=== PATIENT | female | born 1975 | race Caucasian/White ===

== ENCOUNTER 2019-05-12 14:06 | Emergency (ER) | payer OTHER ==
[2019-05-12] MEDS ORDERED: NA CHLORIDE 0.9% 1,000 ML ONE (15:26)
--- NOTE | 2019-05-12 17:50 | ER ---
Nurse's Notes [facility] Name: Kate Moreno Age: 43 yrs Sex: Female : 1975 Arrival Date: 05/12/2019 Time: 14:11 Bed DIS2 Private MD: Diagnosis: Diarrhea, unspecified Presentation: 05/12 14:53 Presenting complaint: Patient states: diarrhea yesterday, vomited yesterday no vomiting iw today , also has back pain and body aches, chills. 14:57 Transition of care: patient was not received from another setting of care. Onset of iw symptoms was May 12, 2019. Risk Assessment: Do you want to hurt yourself or someone else? Patient reports no desire to harm self or others. Initial Sepsis Screen: Does the patient meet any 2 criteria? No. Patient's initial sepsis screen is negative. Does the patient have a suspected source of infection? No. Patient's initial sepsis screen is negative. Care prior to arrival: None. 14:57 Method Of Arrival: Ambulatory iw 14:57 Acuity: BHUMI 4 iw Triage Assessment: 16:30 General: Appears in no apparent distress. Behavior is calm, cooperative. Pain: iw Complains of pain in back. GI: Reports diarrhea, nausea. 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 - Social history:: Smoking status: Patient/guardian denies using tobacco. - Ebola Screening: : Patient negative for fever greater than or equal to 101.5 degrees Fahrenheit, and additional compatible Ebola Virus Disease symptoms Patient denies exposure to infectious person Patient denies travel to an Ebola-affected area in the 21 days before illness onset No symptoms or risks identified at this time. Screenin:30 Abuse screen: Denies threats or abuse. Denies injuries from another. Nutritional iw screening: No deficits noted. Tuberculosis screening: No symptoms or risk factors identified. Assessment: 17:30 Reassessment: Patient appears in no apparent distress at this time. Patient and/or iw family updated on plan of care and expected duration. Pain level reassessed. Patient is alert, oriented x 3, equal unlabored respirations, skin warm/dry/pink. Vital Signs: 14:56 BP 130 / 85; Pulse 85; Resp 16; Temp 97.2; Pulse Ox 98% on R/A; Weight 74.39 kg; Height iw 5 ft. 1 in. (154.94 cm); 14:56 Body Mass Index 30.99 (74.39 kg, 154.94 cm) iw ED Course: 14:11 Patient arrived in ED. rg4 14:27 Ta Rust F[facility]-C [facility]. la1 14:27 Ra Dsouza MD is Attending Physician. la1 14:33 Cecy Feldman, RN is Primary Nurse. iw 14:57 Triage completed. iw 14:57 Arm band placed on. iw 17:30 No provider procedures requiring assistance completed. Patient did not have IV access iw during this emergency room visit. Administered Medications: No medications were administered Outcome: 17:49 Discharge ordered by MD. la1 18:20 Discharged to home iw 18:20 Condition: good 18:20 Discharge instructions given to patient, Instructed on discharge instructions, follow up and referral plans. Demonstrated understanding of instructions. 18:22 Patient left the ED. iw Signatures: Cecy Feldman, RN RN iw Ta Rust FNP-C FNP-Merna Aly rg4
--- NOTE | 2019-05-12 17:51 | EDPHYS ---
Physician Documentation [facility] Name: Kate Moreno Age: 43 yrs Sex: Female : 1975 Arrival Date: 05/12/2019 Time: 14:11 Bed DIS2 Private MD: ED Physician Ra Dsouza HPI: 05/12 15:18 This 43 yrs old Female presents to ER via Ambulatory with complaints of la1 Diarrhea, chills, side pain, back pain. 15:18 The patient presents to the emergency department with nausea, vomiting, 1 times today, la1 diarrhea, 5 times today. 15:18 Onset: The symptoms/episode began/occurred yesterday. Possible causes: sick contacts, la1 by family. The symptoms are aggravated by nothing. The symptoms are alleviated by nothing. Associated signs and symptoms: Pertinent positives: chills. Associated signs and symptoms: Pertinent negatives: belching, constipation, dysuria, GI bleeding, hematuria, vaginal discharge. Severity of symptoms: At their worst the symptoms were mild. The patient has not experienced similar symptoms in the past. family members ill with similar symptoms. . 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 - Social history:: Smoking status: Patient/guardian denies using tobacco. - Ebola Screening: : Patient negative for fever greater than or equal to 101.5 degrees Fahrenheit, and additional compatible Ebola Virus Disease symptoms Patient denies exposure to infectious person Patient denies travel to an Ebola-affected area in the 21 days before illness onset No symptoms or risks identified at this time. ROS: 15:19 Constitutional: Negative for fever, chills, and weight loss, Eyes: Negative for injury, la1 pain, redness, and discharge, ENT: Negative for injury, pain, and discharge, Neck: Negative for injury, pain, and swelling, Cardiovascular: Negative for chest pain, palpitations, and edema, Respiratory: Negative for shortness of breath, cough, wheezing, and pleuritic chest pain. 15:19 MS/Extremity: Negative for injury and deformity, Neuro: Negative for headache, weakness, numbness, tingling, and seizure. 15:19 Abdomen/GI: Positive for nausea, vomiting, and diarrhea, Negative for hematemesis, black/tarry stool, rectal pain, rectal bleeding, bowel incontinence. Exam: 17:48 Constitutional: This is a well developed, well nourished patient who is awake, alert, la1 and in no acute distress. Head/Face: Normocephalic, atraumatic. Eyes: Pupils equal round and reactive to light, extra-ocular motions intact. Periorbital areas with no swelling, redness, or edema. Neck: No Meningismus. Chest/axilla: Normal chest wall appearance and motion. Nontender with no deformity. No lesions are appreciated. Cardiovascular: Regular rate and rhythm with a normal S1 and S2. No gallops, murmurs, or rubs. Normal PMI, no JVD. No pulse deficits. Respiratory: Lungs have equal breath sounds bilaterally, clear to auscultation . No rales, rhonchi or wheezes noted. No increased work of breathing, no retractions or nasal flaring. Abdomen/GI: Soft, non-tender, with normal bowel sounds. No distension or tympany. No guarding or rebound. No evidence of tenderness throughout. Skin: Warm, dry with normal turgor. Normal color with no rashes, no lesions, and no evidence of cellulitis. Neuro: Awake and alert, GCS 15, oriented to person, place, time, and situation. Normal gait. Vital Signs: 14:56 BP 130 / 85; Pulse 85; Resp 16; Temp 97.2; Pulse Ox 98% on R/A; Weight 74.39 kg; Height iw 5 ft. 1 in. (154.94 cm); 14:56 Body Mass Index 30.99 (74.39 kg, 154.94 cm) iw MDM: 14:27 Patient medically screened. la1 17:46 Data reviewed: vital signs, nurses notes, lab test result(s), I have discussed the la1 patient's presentation/case with the attending Emergency Department Physician; and as a result, I will discharge patient. Data interpreted: Pulse oximetry: on room air is 99 %. Interpretation: normal. Counseling: I had a detailed discussion with the patient and/or guardian regarding: the historical points, exam findings, and any diagnostic results supporting the discharge/admit diagnosis, the need for outpatient follow up, a family practitioner, to return to the emergency department if symptoms worsen or persist or if there are any questions or concerns that arise at home. ED course: Family all with diarrhea and fevers, some vomiting, one family member had bloody diarrhea, due to local shigella presence I will cover with zithromax for a possible shigella case. . 17:49 ED course: pt now tolerating PO as well. la1 05/12 15:16 Order name: Flu la1 05/12 16:28 Order name: PO challenge; Complete Time: 16:37 la1 Administered Medications: No medications were administered Disposition: 19:09 Co-signature as Attending Physician, Ra Dsouza MD. rn Disposition: 05/12/19 17:49 Discharged to Home. Impression: Diarrhea, unspecified. - Condition is Stable. - Discharge Instructions: Food Choices to Help Relieve Diarrhea, Adult, Diarrhea, Adult. - Prescriptions for Zithromax 500 mg Oral Tablet - take 1 tablet by ORAL route once daily for 3 days; 3 tablet. - Medication Reconciliation Form, Thank You Letter, Antibiotic Education form. - Work release form (05/12/19 19:31). rr5 - Follow up: Private Physician; When: 2 - 3 days; Reason: Recheck today's complaints, Re-evaluation by your physician. - Problem is new. - Symptoms have improved. Signatures: Dispatcher [employer] EDMS Cecy Feldman RN RN iw Nieto, Roman, MD MD rn Attema, Lee, CLAMP JIG ASSEMBLER-C CLAMP JIG ASSEMBLER-[facility] Edwar Mcwilliams RN [email or web address] Corrections: (The following items were deleted from the chart) 18:22 17:49 05/12/2019 17:49 Discharged to Home. Impression: Diarrhea, unspecified. Condition iw is Stable. Forms are Medication Reconciliation Form, Thank You Letter, Antibiotic Education, Prescription Opioid Use. Follow up: Private Physician; When: 2 - 3 days; Reason: Recheck today's complaints, Re-evaluation by your physician. Problem is new. Symptoms have improved. la1
[2019-05-12 20:03] VITALS: BP 130/85; TEMP 97.2; O2SAT 98
== END 2019-05-12 18:22 | disposition home or self-care (01) ==
LOC: ER 14:06
DX: R19.7 Diarrhea, unspecified (principal); Z88.5 Allergy status to narcotic agent
CPT/HCPCS: 87804 ×2; 99281; J7030

== ENCOUNTER 2022-04-19 16:38 | Emergency (ER) | payer BC ==
--- OUTSIDE RECORDS SUMMARY | 2022-04-19 16:43 | XMS REPORT | Continuity of Care Document ---
:1975 Author Organization [facility] t Address [address] [place] [address] Care Team Providers Name Role Phone Bui_Q Attending Clinician Unavailable Bui_Q_WAGDNU Attending Clinician Unavailable Nghia Lambert Attending Clinician Unavailable [email or web address] Attending Clinician Unavailable VISIT, NURSE HARLEY VALVERDE Attending Clinician Unavailable Helen Huff Attending Clinician ROGERIO MACK M.D. Attending Clinician Unavailable Callie Humphrey Attending Clinician Drew Reid Attending Clinician JERI FLYNN NP Attending Clinician Unavailable Olya Walter Attending Clinician VISIT, NURSE VICTORINA BLACKMAN Attending Clinician Unavailable Bui_Q Admitting Clinician Unavailable Bui_Q_WAGDNU Admitting Clinician Unavailable Lambert, Nghia D Admitting Clinician Unavailable [email or web address] Admitting Clinician Unavailable Payers Payer Name Policy Type Policy Number Effective Date Expiration Date Leidy wyman [place] [id number] 2021 [place] (PPO) 00:00:00 [facility] [id number] 2014 2021 [facility] 00:00:00 00:00:00 [facility] (PPO) [id number] 2018 00:00:00 Problems Condition Condition Condition Status Onset Resolution Last Treating Co mments Source Name Details Category Date Date Treatment Clinician Date Hypertensi Hypertensi Problem Active V illage ve ve 1-29 Family disorder Disorder 00:00: Practi c 00 e Dyslipidem Dyslipidem Problem Active 2018-05 V illage ia ia 0-11 Family 00:00: Practic 00 e Migraine Migraine Problem Active Guerrier ge 8-31 Family 00:00: Practic 00 e Seasonal Seasonal Problem Active Guerrier ge allergy Allergy 719 Family 00:00: Practic 00 e Menopausal Menopausal Problem Active V illage flushing Flushing 719 Family 00:00: Practic 00 e Motion Motion Problem Active [facility] sickness Sickness 719 Family 00:00: Practic 00 e 1ST: 1ST: DR Diagnosis Active 2018-07-13 Memoria HUMPHREY: HUMPHREY: 208 16:00:00 l IRREGULAR IRREGULAR 00:00: Herm marlon MENSTRUATI MENSTRUATI 00 ON ON Active 06/25/2018 [facility] History of History of Problem Resolve UT essential essential d Phys ici hypertensi hypertensi an s on on History of History of Problem Resolve UT migraine migraine d Physic i ans Urgency of Urgency of Problem Active U T urination urination Phys ici ans Urinary Urinary Problem Active UT incontinen incontinen Ph ysici ce in ce in ans female female History of History of Problem Resolve UT Rectocele, Rectocele, d Ph ysici female female ans Recent Recent Problem Active UT urinary urinary Physici tract tract ans infection infection History of History of Problem Resolve UT Stress Stress d Physici incontinen incontinen an s ce, female ce, female 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 Ph ysici ity ity ans Urinary Urinary Problem Active UT frequency frequency Phys ici ans Post-opera Post-opera Problem Active U T tive state tive state Ph ysici ans Pre-op Pre-op Problem Active UT evaluation evaluation Ph ysici ans Vaginal Vaginal Problem Active UT burning burning Physici ans Dysmenorrh Dysmenorr Problem Active 2018-12-28 Memoria ea hea 12:38:30 l (disorder) (disorder) He rmann Active Problem 12/28/2018 [facility] [place] Medical Medical Problem Active 2018-12-28 Michael nicholson examinatio examinatio 12:38:30 l ns/reports ns/reports He rmann status status (finding) (finding) Active Problem 12/28/2018 [facility] [place] Obesity Obesity Problem Active 2018-12-28 Me albarran (disorder) (disorder) 12:38:30 l Active Jane Lew Problem 12/28/2018 Medical [facility] [place] Vertigo Vertigo Problem Active 2018-12-28 Me albarran (finding) (finding) 12:38:30 l Active Rob Problem [facility]28[facility] [place] IRREGULAR IRREGULAR Diagnosis Active 2018-07-13 Memoria MENSTRUATI MENSTRUATI 16:00:00 l ON, ON, Rob UNSPECIFIE UNSPECIFIE D D Active [place] Allergies, Adverse Reactions, Alerts Allergy Allergy Status Severity Reaction(s) Onset Inactive Treating Comm ents Source Name Type Date Date Clinician NUBAIN Allergy Active Nausea [place] to Family substanc Practic e e Nubain drug Active [facility] SOLN allergy Physici ans morphine morphine Active Memori a l Rob Nubain Nubain Active Memoria l Rob Family History Family Member Diagnosis Comments Start Date Stop Date Source Unknown Family Family history of Family History [facility] Physicians Member cardiac disorder Social History Social Habit Start Date Stop Date Quantity Comments Source Social History 2016-08-01 2016-08-01 [facility] iban 16:04:35 16:04:35 Smoking Status Start Date Stop Date Source Never Smoker [facility] Medications Ordered Filled Start Stop Current Ordering Indication Dosage Frequency Signature Comments Components Source Medication Medication Date Date Medication? Clinician (SIG) Name Name Ondansetron 2018- Yes 8 mg = 1 [place] moria 8 MG 6-07 tab, PO, l Disintegrat 19:21: TID, PRN He rmann ing Tablet 00 Nausea and [Zofran] Vomiting, Dissolve tab under tongue, # 10 tab, 0 Refill(s), [facility]acy: [id number] azelastine 2018- Yes 2 spray, Mem oria nasal 137 6-07 NASAL, l mcg/inh 19:21: BID, PRN Jose n spray 00 Congestion | 1-2 sprays, # 1 ea, 2 Refill(s), Pharmacy: [id number] Estradiol 1 Yes 1 mg = 1 Me moria MG Oral 6-07 tab, PO, l Tablet 19:01: Daily, # Jane Lew 00 90 tab, 0 Refill(s) ondansetron Yes 4 mg = 1 Me moria 4 mg oral 6-07 tab, PO, l tablet 19:01: TID, # 3 00 tab, 0 Refill(s) Estradiol Estradiol Yes ROGERIO 1/2 gm per UT 0.1 MG/GM 0.1 MG/GM 5-13 MARTINA M.D. [facility] at [facility] Vaginal Vaginal 00:00: bedtime ans Cream Cream 00 for 7 days, then 1/2 gm per vagina two times weekly at bedtime. Miralax No Notes: Memoria 2-27 Dissolve l 14:31: in 8 oz of water or juice. (Same as: Miralax) Docusate No Notes: Memoria 2- (Same as: l 23:00: Colace) (Do Not Crush) neostigmine No Route: IV, Memoria (ANES) 07-13 Drug form: l 22:00: INJ, ONCE, Stop date: 07/13/18 16:00:00 LAGGING MACHINE OPERATOR glycopyrrol No Route: IV, Memoria ate (ANES) - Drug form: l 22:00: INJ, ONCE, Stop date: 07/13/18 16:00:00 LAGGING MACHINE OPERATOR Ketorolac No 4 days Memor ia - l 21:00: MEDICATION WASTE Product Size: 30 mg Product Wasted: ___ mg Aluminum No Notes: Memoria Hydroxide - (aluminum l 40 MG/ML / 20:51: hydroxide- H erm magnesium Hydroxide hyd-simeth 40 MG/ML / icone Simethicone 200-200-20 4 MG/ML mg/5ml 30 Oral ml ud REI) Suspension Diphenhydra No Notes: Henry nael mine - (Same as: l 20:51: Benadryl) Ondansetron No Notes: Henry nael 2-26 (Same as: l 20:51: Zofran) MEDICATION WASTE Product Size: 4 mg Product Wasted: ___ mg Hydromorpho No Notes: Henry nael ne 07-13 Same as l 20:51: Dilaudid Oxycodone No Notes: Memori a Hydrochlori 07-13 (Same as: l de 5 MG 20:51: Roxicodone Herm marlon Oral Tablet ) Calcium No 1,000 mL, Memor ia Chloride 07-13 Rate: 125 l 0.0014 20:51: ml/hr, MEQ/ML / 00 Infuse Potassium over: 8 Chloride hr, Route: 0.004 IV, Dosing MEQ/ML / Weight Sodium 61.818 kg, Chloride Total 0.103 Volume: MEQ/ML / 1,000, Sodium Start Lactate date: 0.028 07/13/18 MEQ/ML 14:51:00 Injectable LAGGING MACHINE OPERATOR, Solution Duration: 30 day, Stop date: 08/12/18 14:50:00 CDT, 1.76, m2 hydromorpho No Route: IV, Memoria ne (ANES) 07-13 Drug form: l 20:31: INJ, ONCE, Stop date: 07/13/18 14:31:00 LAGGING MACHINE OPERATOR ondansetron No Route: IV, Memoria (ANES) 07-13 Drug form: l 19:56: INJ, ONCE, Stop date: 07/13/18 13:56:00 LAGGING MACHINE OPERATOR metoclopram No Route: IV, Memoria trent (ANES) 07-13 Drug form: l 19:56: INJ, ONCE, Stop date: 07/13/18 13:56:00 LAGGING MACHINE OPERATOR dexamethaso No Route: IV, Memoria ne (ANES) 07-13 Drug form: l 19:56: INJ, ONCE, Stop date: 07/13/18 13:56:00 LAGGING MACHINE OPERATOR fentaNYL No Route: IV, Mem oria (ANES) 07-13 Drug form: l 19:51: INJ, ONCE, Stop date: 07/13/18 13:51:00 LAGGING MACHINE OPERATOR rocuronium No Route: IV, M emoria (ANES) 07-13 Drug form: l 19:51: INJ, ONCE, Stop date: 07/13/18 13:51:00 LAGGING MACHINE OPERATOR lidocaine No Route: IV, Me moria (ANES) 2- Drug form: l 19:51: INJ, ONCE, Stop date: 07/13/18 13:51:00 LAGGING MACHINE OPERATOR ceFAZolin No Route: IV, Me moria (ANES) 2 Drug form: l 19:46: INJ, ONCE, Stop date: 07/13/18 13:46:00 LAGGING MACHINE OPERATOR succinylcho No Route: IV, Memoria line (ANES) 07-13 Drug form: l 19:42: INJ, ONCE, Stop date: 07/13/18 13:42:00 LAGGING MACHINE OPERATOR propofol No Route: IV, Mem oria (ANES) 07-13 Drug form: l 19:41: INJ, ONCE, Stop date: 07/13/18 13:41:00 LAGGING MACHINE OPERATOR Lactated No Route: IV, Mem oria Ringers 07-13 Total l Injection 19:00: Volume: Sylvia nn IV (ANES) 00 1,000, 1000 mL Start date: 07/13/18 13:00:00 LAGGING MACHINE OPERATOR, Stop date: 07/13/18 14:00:00 LAGGING MACHINE OPERATOR celecoxib No Notes: Memori a - NSAID. l 18:00: Please check indication . Not for seizure. (Same As: CeleBREX) Famotidine No Notes: Memor ia - (Same as: l 18:00: Pepcid) gabapentin No Notes: Memor ia 300 MG Oral 07-13 (Same as: l Capsule 18:00: Neurontin) Tylenol No Notes: Max Henry nael - acetaminop l 18:00: hen 4000 mg/day (4 gm/day). (Same as: Tylenol Extra Strength) Lidocaine No Notes: Memori a Hydrochlori - Preservati l de 10 MG/ML 18:00: ve free. He rmann Injectable (Same as: Solution Xylocaine MPF) 72 HR No 1 patch, Memoria Scopolamine 07-13 Route: l 0.0139 17:45: TOP, Drug Jose n MG/HR 00 Form: Transdermal ERFILM, Patch Dosing Weight 61.818, kg, ONCE, Start date: 07/13/18 11:45:00 LAGGING MACHINE OPERATOR, Stop date: 07/13/18 11:45:00 LAGGING MACHINE OPERATOR Calcium No 1,000 mL, Memor ia Chloride 07-13 Rate: 25 l 0.0014 17:09: ml/hr, Rob MEQ/ML / 00 Infuse Potassium over: 40 Chloride hr, Route: 0.004 IV, Dosing MEQ/ML / Weight Sodium 61.818 kg, Chloride Total 0.103 Volume: MEQ/ML / 1,000, Sodium Start Lactate date: 0.028 07/13/18 MEQ/ML 11:09:00 Injectable LAGGING MACHINE OPERATOR, Solution Duration: 30 day, Stop date: 08/12/18 11:08:00 CDT, 1.76, m2 ceFAZolin + No Notes: Henry nael sterile 07-13 (Same As: l water 20 mL 11:00: Ancef, Herm marlon 00 Kefzol) MEDICATION WASTE Product Size: 1000 mg Product Wasted: ___ mg Ondansetron 2017-05 No 8 mg = 1 Me moria 8 MG Oral 1-15 tab, PO, l Tablet 17:34: TID, # 10 Jose n [Zofran] 00 tab, 0 Refill(s), Pharmacy: [facility] #[id number] losartan 2017-05 No 25 mg = 1 M emoria mg oral 1-15 tab, PO, l tablet 17:34: Daily, # Jane Lew 00 90 tab, 1 Refill(s), Pharmacy: [facility] #[id number] Naproxen No 550 mg = 1 Mem oria sodium 550 9-20 tab, PO, l MG Oral 17:01: BID, PRN Jose n Tablet 00 Pain, X 10 [Anaprox] day, # 20 tab, 1 Refill(s), Pharmacy: [facility] #[id number] chlorhexidi chlorhexidi No chlorhexid [facility] gluconate gluconate gluconate Practic 0.12 % 0.12 % 0.12 % e mouthwash mouthwash mouthwash TAKE 15ML TAKE 15ML TAKE 15ML SWISH AND SWISH AND SWISH AND SPIT OUT SPIT OUT SPIT OUT TWICE A DAY TWICE A DAY TWICE A DAY metoprolol metoprolol No 1 Q1D metoprolol [facility] succinate succinate succinate Family ER 100 mg ER 100 mg ER 100 mg Practic tablet,exte tablet,exte tablet,ext e nded nded ended release 24 release 24 release 24 hr Take 1 hr Take 1 hr Take 1 tablet tablet tablet every day every day every day by oral by oral by oral route. route. route. phentermine phentermine No phentermin Dami 37.5 mg 37.5 mg e 37.5 mg Fami ly tablet TAKE tablet TAKE tablet Practic 1 TABLET BY 1 TABLET BY TAKE 1 e MOUTH EVERY MOUTH EVERY TABLET BY DAY IN THE DAY IN THE MOUTH MORNING MORNING EVERY DAY IN THE MORNING Saxenda 3 Saxenda 3 No Saxenda 3 [facility] mg/0.5 mL mg/0.5 mL mg/0.5 mL [facility] (18 mg/3 (18 mg/3 (18 mg/3 Pra ctic mL) mL) mL) e subcutaneou subcutaneou subcutaneo s pen s pen us pen injector injector injector Start: 0.6 Start: 0.6 Start: 0.6 mg SC qd mg SC qd mg SC qd x1wk, then x1wk, then x1wk, then may incr. may incr. september incr. dose to 1.2 dose to 1.2 dose to mg/day mg/day 1.2 mg/day metoprolol metoprolol No metoprolol Dami succinate succinate succinate Family ER 100 mg ER 100 mg ER 100 mg Practic tablet,exte tablet,exte tablet,ext e nded nded ended release 24 release 24 release 24 hr TAKE 1 hr TAKE 1 hr TAKE 1 TABLET BY TABLET BY TABLET BY MOUTH EVERY MOUTH EVERY MOUTH DAY DAY EVERY DAY phentermine phentermine No phentermin Dami 37.5 mg 37.5 mg e 37.5 mg Fami ly tablet TAKE tablet TAKE tablet Practic 1 TABLET BY 1 TABLET BY TAKE 1 e MOUTH EVERY MOUTH EVERY TABLET BY DAY IN THE DAY IN THE MOUTH MORNING MORNING EVERY DAY IN THE MORNING metoprolol metoprolol No metoprolol Dami succinate succinate succinate Family ER 100 mg ER 100 mg ER 100 mg Practic tablet,exte tablet,exte tablet,ext e nded nded ended release 24 release 24 release 24 hr TAKE 1 hr TAKE 1 hr TAKE 1 TABLET BY TABLET BY TABLET BY MOUTH EVERY MOUTH EVERY MOUTH DAY DAY EVERY DAY phentermine phentermine No phentermin [facility] 37.5 mg 37.5 mg e 37.5 mg Fami ly tablet TAKE tablet TAKE tablet Practic 1 TABLET BY 1 TABLET BY TAKE 1 e MOUTH EVERY MOUTH EVERY TABLET BY DAY IN THE DAY IN THE MOUTH MORNING MORNING EVERY DAY IN THE MORNING meclizine meclizine No 1 Q1D meclizine [facility] 25 mg 25 mg 25 mg Family tablet Take tablet Take tablet Practic 1 tablet 1 tablet Take 1 e every day every day tablet by oral by oral every day route as route as by oral needed. needed. route as needed. metoprolol metoprolol No metoprolol [facility] succinate succinate succinate Family ER 100 mg ER 100 mg ER 100 mg Practic tablet,exte tablet,exte tablet,ext e nded nded ended release 24 release 24 release 24 hr TAKE 1 hr TAKE 1 hr TAKE 1 TABLET BY TABLET BY TABLET BY MOUTH EVERY MOUTH EVERY MOUTH DAY DAY EVERY DAY Ozempic Ozempic No .5mg Q1W Ozempic Vill[facility] e 0.25 mg or 0.25 mg or 0.25 mg or Family 0.5 mg (2 0.5 mg (2 0.5 mg (2 Practic mg/1.5 mL) mg/1.5 mL) mg/1.5 mL) e subcutaneou subcutaneou subcutaneo s pen s pen us pen injector injector injector Inject 0.5 Inject 0.5 Inject 0.5 mg every mg every mg every week by week by week by subcutaneou subcutaneou subcutaneo s route. s route. us route. phentermine phentermine No phentermin [facility] 37.5 mg 37.5 mg e 37.5 mg Fami ly tablet TAKE tablet TAKE tablet Practic 1 TABLET BY 1 TABLET BY TAKE 1 e MOUTH EVERY MOUTH EVERY TABLET BY DAY IN THE DAY IN THE MOUTH MORNING MORNING EVERY DAY IN THE MORNING Immunizations Ordered Immunization Filled Immunization Date Status Commen ts Source Name Name influenza, influenza, 2022-03-03 Completed [facility] Family injectable, injectable, 15:41:00 Practice quadrivalent, quadrivalent, preservative free preservative free influenza, influenza, 2021-02-18 Completed [facility] injectable, injectable, 19:04:00 Practice quadrivalent, quadrivalent, preservative free preservative free influenza, influenza, 2021-02-18 Completed [facility] injectable, injectable, 19:04:00 Practice quadrivalent, quadrivalent, preservative free preservative free influenza, influenza, 2021-02-18 Completed [facility] injectable, injectable, 19:04:00 Practice quadrivalent, quadrivalent, preservative free preservative free influenza, influenza, 2021-02-18 Completed [facility] injectable, injectable, 00:00:00 Practice quadrivalent, quadrivalent, preservative free - preservative free - ML ML COVID-19 COVID-19 2020-08-16 Completed [facility] Family (SARS-COV-2) (SARS-COV-2) 00:00:00 Practice vaccine, unspecified vaccine, unspecified COVID-19 COVID-19 2020-08-16 Completed [facility] Family (SARS-COV-2) (SARS-COV-2) 00:00:00 Practice vaccine, unspecified vaccine, unspecified COVID-19 COVID-19 2020-08-16 Completed [facility] Family (SARS-COV-2) (SARS-COV-2) 00:00:00 Practice vaccine, unspecified vaccine, unspecified COVID-19, mRNA, COVID-19, mRNA, 2020-08-13 Completed [facility] Family LNP-S, PF, 100 LNP-S, PF, 100 00:00:00 Practi ce mcg/0.5 mL dose mcg/0.5 mL dose (Moderna) - ML (Moderna) - ML COVID-19 COVID-19 2020-07-16 Completed [facility] Family (SARS-COV-2) (SARS-COV-2) 00:00:00 Practice vaccine, unspecified vaccine, unspecified COVID-19 COVID-19 2020-07-16 Completed [facility] (SARS-COV-2) (SARS-COV-2) 00:00:00 Practice vaccine, unspecified vaccine, unspecified COVID-19 COVID-19 2020-07-16 Completed [facility] (SARS-COV-2) (SARS-COV-2) 00:00:00 Practice vaccine, unspecified vaccine, unspecified COVID-19, mRNA, COVID-19, mRNA, 2020-07-16 Completed [facility] Family LNP-S, PF, 100 LNP-S, PF, 100 00:00:00 Practi ce mcg/0.5 mL dose mcg/0.5 mL dose (Moderna) - ML (Moderna) - ML Tdap Tdap 2019-02-25 Completed [facility] Family 18:20:00 Practice Tdap Tdap 2019-02-25 Completed [facility] Family 18:20:00 Practice Tdap Tdap 2019-02-25 Completed [facility] 18:20:00 Practice Tdap Tdap 2019-02-25 Completed [facility] Family 18:20:00 Practice influenza, influenza, 2019-02-01 Completed [facility] Family injectable, injectable, 11:35:00 Practice quadrivalent, quadrivalent, preservative free preservative free influenza, influenza, 2019-02-01 Completed [facility] Family injectable, injectable, 11:35:00 Practice quadrivalent, quadrivalent, preservative free preservative free influenza, influenza, 2019-02-01 Completed [facility] Family injectable, injectable, 11:35:00 Practice quadrivalent, quadrivalent, preservative free preservative free influenza, influenza, 2019-02-01 Completed [facility] Family injectable, injectable, 11:35:00 Practice quadrivalent, quadrivalent, preservative free preservative free Vital Signs Vital Name Observation Time Observation Value Comments Source BP Diastolic 2022-04-15 78 mm[Hg] [facility] Family 00:00:00 Practice Height 2022-04-15 61 [in_i] [facility] Family 00:00:00 Practice BMI (Body Mass 2022-04-15 26 kg/m2 [facility] Famil y Index) 00:00:00 Practice BP Systolic 2022-04-15 131 mm[Hg] [facility] Family 00:00:00 Practice Body Weight 2022-04-15 137.4 [lb_av] [facility] Family 00:00:00 Practice BP Diastolic 2022-03-03 84 mm[Hg] [facility] Family 00:00:00 Practice Height 2022-03-03 61 [in_i] [facility] Family 00:00:00 Practice BMI (Body Mass 2022-03-03 26.3 kg/m2 [facility] Famil y Index) 00:00:00 Practice BP Systolic 2022-03-03 136 mm[Hg] [facility] Family 00:00:00 Practice Body Weight 2022-03-03 139 [lb_av] [facility] 00:00:00 Practice Height 2022-02-03 61 [in_i] [facility] 00:00:00 Practice BMI (Body Mass 2022-02-03 26.1 kg/m2 [facility]amil y Index) 00:00:00 Practice Body Weight 2022-02-03 138 [lb_av] [facility] 00:00:00 Practice BP Diastolic 2022-01-02 85 mm[Hg] [facility] 00:00:00 Practice Height 2022-01-02 61 [in_i] [facility] 00:00:00 Practice BMI (Body Mass 2022-01-02 27.2 kg/m2 [facility]amil y Index) 00:00:00 Practice BP Systolic 2022-01-02 147 mm[Hg] [facility] 00:00:00 Practice Body Weight 2022-01-02 144 [lb_av] [facility] 00:00:00 Practice BP Diastolic 2021-06-11 89 mm[Hg] [facility] 00:00:00 Practice Height 2021-06-11 61 [in_i] [facility] 00:00:00 Practice BMI (Body Mass 2021-06-11 24.9 kg/m2 [facility]amil y Index) 00:00:00 Practice BP Systolic 2021-06-11 149 mm[Hg] [facility] 00:00:00 Practice Body Weight 2021-06-11 132 [lb_av] [facility] 00:00:00 Practice BP Diastolic 2021-05-14 82 mm[Hg] [facility] 00:00:00 Practice Height 2021-05-14 61 [in_i] [facility] 00:00:00 Practice BMI (Body Mass 2021-05-14 24.7 kg/m2 [facility]amil y Index) 00:00:00 Practice BP Systolic 2021-05-14 132 mm[Hg] [facility] 00:00:00 Practice Body Weight 2021-05-14 130.6 [lb_av] [facility] 00:00:00 Practice BP Diastolic 2021-02-18 89 mm[Hg] [facility] 00:00:00 Practice Height 2021-02-18 61 [in_i] [facility] 00:00:00 Practice BMI (Body Mass 2021-02-18 25.1 kg/m2 [facility]amil y Index) 00:00:00 Practice BP Systolic 2021-02-18 144 mm[Hg] [facility] 00:00:00 Practice Body Weight 2021-02-18 132.6 [lb_av] [facility] 00:00:00 Practice BP Diastolic 2021-02-13 79 mm[Hg] [facility] 00:00:00 Practice Height 2021-02-13 61 [in_i] [facility] 00:00:00 Practice BMI (Body Mass 2021-02-13 25.3 kg/m2 [facility]amil y Index) 00:00:00 Practice BP Systolic 2021-02-13 125 mm[Hg] [facility] 00:00:00 Practice Body Weight 2021-02-13 133.7 [lb_av] [facility] 00:00:00 Practice BP Diastolic 2020-12-31 101 mm[Hg] [facility] 00:00:00 Practice Height 2020-12-31 61 [in_i] [facility] 00:00:00 Practice BMI (Body Mass 2020-12-31 25.8 kg/m2 [facility]amil y Index) 00:00:00 Practice BP Systolic 2020-12-31 155 mm[Hg] [facility] 00:00:00 Practice Body Weight 2020-12-31 136.4 [lb_av] [facility] 00:00:00 Practice BP Diastolic 2020-09-18 91 mm[Hg] [facility] 00:00:00 Practice Height 2020-09-18 61 [in_i] [facility] 00:00:00 Practice BMI (Body Mass 2020-09-18 24.9 kg/m2 [facility]amil [facility] Index) 00:00:00 Practice BP Systolic 2020-09-18 144 mm[Hg] [facility] 00:00:00 Practice Body Weight 2020-09-18 132 [lb_av] [facility] 00:00:00 Practice BP Diastolic 2020-06-15 98 mm[Hg] [facility] 00:00:00 Practice Height 2020-06-15 61 [in_i] [facility] 00:00:00 Practice BMI (Body Mass 2020-06-15 24.5 kg/m2 [facility]amil y Index) 00:00:00 Practice BP Systolic 2020-06-15 155 mm[Hg] [facility] 00:00:00 Practice Body Weight 2020-06-15 129.8 [lb_av] [facility] 00:00:00 Practice Height 2020-01-31 61 [in_i] [facility] 00:00:00 Practice Height 2019-10-27 61 [in_i] [facility] 00:00:00 Practice BMI (Body Mass 2019-10-27 23.6 kg/m2 [facility]amil [facility] Index) 00:00:00 Practice Body Weight 2019-10-27 125 [lb_av] [facility] 00:00:00 Practice Height 2019-09-29 61 [in_i] [facility] 00:00:00 Practice BMI (Body Mass 2019-09-29 24.6 kg/m2 [facility] Famil y Index) 00:00:00 Practice Body Weight 2019-09-29 130 [lb_av] [facility] 00:00:00 Practice Height 2019-08-22 61 [in_i] [facility] 00:00:00 Practice BP Diastolic 2019-07-21 91 mm[Hg] [facility] 00:00:00 Practice Height 2019-07-21 61 [in_i] [facility] 00:00:00 Practice BMI (Body Mass 2019-07-21 27.6 kg/m2 [facility] Famil y Index) 00:00:00 Practice BP Systolic 2019-07-21 142 mm[Hg] [facility] 00:00:00 Practice Body Weight 2019-07-21 146 [lb_av] [facility] 00:00:00 Practice BP Diastolic 2019-06-23 86 mm[Hg] [facility] 00:00:00 Practice Height 2019-06-23 61 [in_i] [facility] 00:00:00 Practice BMI (Body Mass 2019-06-23 28.2 kg/m2 [facility] Famil y Index) 00:00:00 Practice BP Systolic 2019-06-23 124 mm[Hg] [facility] 00:00:00 Practice Body Weight 2019-06-23 149 [lb_av] [facility] 00:00:00 Practice BP Diastolic 2019-04-19 90 mm[Hg] [facility] 00:00:00 Practice Height 2019-04-19 61 [in_i] [facility] 00:00:00 Practice BMI (Body Mass 2019-04-19 30.8 kg/m2 [facility] Famil y Index) 00:00:00 Practice BP Systolic 2019-04-19 138 mm[Hg] [facility] 00:00:00 Practice Body Weight 2019-04-19 163 [lb_av] [facility] 00:00:00 Practice BP Diastolic 2019-03-30 80 mm[Hg] [facility] 00:00:00 Practice Height 2019-03-30 61 [in_i] [facility] 00:00:00 Practice BMI (Body Mass 2019-03-30 31 kg/m2 [facility] Famil y Index) 00:00:00 Practice BP Systolic 2019-03-30 120 mm[Hg] [facility] 00:00:00 Practice Body Weight 2019-03-30 164 [lb_av] [facility] 00:00:00 Practice BP Diastolic 2019-02-25 80 mm[Hg] [facility] 00:00:00 Practice Height 2019-02-25 61 [in_i] [facility] 00:00:00 Practice BMI (Body Mass 2019-02-25 32.8 kg/m2 [facility]amil [facility] Index) 00:00:00 Practice BP Systolic 2019-02-25 127 mm[Hg] [facility] Body Weight 2019-02-25 173.8 [lb_av] [facility] BP Diastolic 2019-02-01 84 mm[Hg] [facility] Height 2019-02-01 61 [in_i] [facility]:00 [facility] BMI (Body Mass 2019-02-01 31.6 kg/m2 [facility]) 00:00:00 Practice BP Systolic 2019-02-01 122 mm[Hg] [facility]:00 Practice Body Weight 2019-02-01 167 [lb_av] [facility] 00:[facility]:00 Practice BP Diastolic 2018-12-03 80 mm[Hg] [facility]:00 [facility] Height 2018-12-03 61 [in_i] [facility] 00:[facility]:00 Practice BMI (Body Mass 2018-12-03 31.4 kg/m2 [facility] 00:00:00 Practice BP Systolic 2018-12-03 126 mm[Hg] [facility] 00[facility]:00 Practice Body Weight 2018-12-03 166 [lb_av] [facility] 00[facility]:00 [facility] Weight 2018-10-22 Margoth Garcia n 18:58:00 BMI Calculated 2018-10-22 Margoth mason 18:58:00 Systolic (mm Hg) 2018-10-22 Margoth Moffett rmmarlon 18:58:00 Diastolic (mm Hg) 2018-10-22 Margoth Rogers ermmarlon 18:58:00 Height 2018-10-22 152.4 cm [facility] 18:58:00 Heart Rate 2018-10-22 Margoth Garcia n 18:58:00 Temperature Oral 2018-10-22 97.9 F Margoth blanco (F) 18:58:00 BP Systolic 2018-09-27 140 mm[Hg] Location: LUE; [facility] 13:25:00 Position: Sitting BP Diastolic 2018-09-27 80 mm[Hg] Location: LUE; [facility] 13:25:00 Position: Sitting Height 2018-09-27 61 [in_us] [facility] 13:25:00 Weight 2018-09-27 150 [lb_av] [facility] 13:25:00 Body Mass Index 2018-09-27 28.34 kg/m2 [facility] Calculated 13:25:00 Temperature 2018-09-27 97.9 [degF] [facility] 13:25:00 BP Systolic 2018-08-30 128 mm[Hg] Location: LUE; [facility] 14:05:00 Position: Sitting BP Diastolic 2018-08-30 82 mm[Hg] Location: LUE; [facility] 14:05:00 Position: Sitting Height 2018-08-30 61 [in_us] [facility] 14:05:00 Weight 2018-08-30 150 [lb_av] [facility] 14:05:00 Body Mass Index 2018-08-30 28.34 kg/m2 [facility] Calculated 14:05:00 Temperature 2018-08-30 97.8 [degF] [facility] 14:05:00 BP Systolic 2018-07-27 118 mm[Hg] Location: LUE; [facility] 13:30:00 Position: Sitting BP Diastolic 2018-07-27 80 mm[Hg] Location: LUE; [facility] 13:30:00 Position: Sitting Temperature 2018-07-27 97.7 [degF] [facility] 13:30:00 Height 2018-07-27 61 [in_us] [facility] 13:30:00 Weight 2018-07-27 150 [lb_av] [facility] 13:30:00 Body Mass Index 2018-07-27 28.34 kg/m2 [facility] 13:30:00 BP Systolic 2018-07-15 124 mm[Hg] Location: LUE; [facility] 10:03:00 Position: Sitting BP Diastolic 2018-07-15 82 mm[Hg] Location: LUE; [facility] 10:03:00 Position: Sitting Height 2018-07-15 61 [in_us] [facility] 10:03:00 Weight 2018-07-15 150 [lb_av] [facility] 10:03:00 Body Mass Index 2018-07-15 28.34 kg/m2 [facility] Cal[facility] 10:03:00 Temperature 2018-07-15 98 [degF] [facility] 10:03:00 Respitory Rate 2018-07-14 [facility] 17:27:00 Temperature Oral 2018-07-14 98.5 F [facility] (F) 17:27:00 Systolic (mm Hg) 2018-07-14 [facility] 17:27:00 Diastolic (mm Hg) 2018-07-14 [facility] 17:27:00 Heart Rate 2018-07-14 [facility] 17:27:00 Respitory Rate 2018-07-14 [facility] 13:49:00 Heart Rate 2018-07-14 [facility] 13:49:00 Temperature Oral 2018-07-14 97.8 F [facility] He rmann (F) 13:49:00 Systolic (mm Hg) 2018-07-14 [facility] 13:49:00 Diastolic (mm Hg) 2018-07-14 [facility] 13:49:00 Systolic (mm Hg) 2018-07-14 [facility] 09:42:00 Diastolic (mm Hg) 2018-07-14 [facility] 09:42:00 Respitory Rate 2018-07-14 [facility] 09:42:00 Heart Rate 2018-07-14 [facility] 09:42:00 Temperature Oral 2018-07-14 97.9 F [facility] He rmann (F) 09:42:00 Height 2018-07-12 180.34 cm [facility] 21:25:00 Weight 2018-07-12 [facility] 21:25:00 BMI Calculated 2018-07-12 [facility] 21:25:00 BP Systolic 2018-07-12 132 mm[Hg] Location: LUE; [facility] 13:33:00 Position: Sitting BP Diastolic 2018-07-12 72 mm[Hg] Location: LUE; [facility] 13:33:00 Position: Sitting Height 2018-07-12 61 [in_us] [facility] 13:33:00 Weight 2018-07-12 150 [lb_av] [facility] 13:33:00 Body Mass Index 2018-07-12 28.34 kg/m2 [facility] 13:33:00 Temperature 2018-07-12 97.5 [degF] [facility] 13:33:00 Systolic (mm Hg) 2018-06-09 [facility] 19:27:00 Diastolic (mm Hg) 2018-06-09 [facility] 19:27:00 Temperature Oral 2018-06-09 98.1 F [facility] rmann (F) 19:27:00 Heart Rate 2018-06-09 [facility] Jose n 19:27:00 BP Systolic 2018-05-27 132 mm[Hg] Location: LUE; [facility] 15:14:00 Position: Sitting BP Diastolic 2018-05-27 82 mm[Hg] Location: LUE; [facility] 15:14:00 Position: Sitting Height 2018-05-27 61 [in_us] [facility] 15:14:00 Weight 2018-05-27 150 [lb_av] [facility] 15:14:00 Body Mass Index 2018-05-27 28.34 kg/m2 [facility] Cal[facility] 15:14:00 Temperature 2018-05-27 98.5 [degF] [facility] 15:14:00 BP Systolic 2018-05-13 128 mm[Hg] Location: LUE; [facility] 15:56:00 Position: Sitting BP Diastolic 2018-05-13 82 mm[Hg] Location: LUE; [facility] 15:56:00 Position: Sitting Height 2018-05-13 61 [in_us] [facility] 15:56:00 Weight 2018-05-13 150 [lb_av] [facility] 15:56:00 Body Mass Index 2018-05-13 28.34 kg/m2 [facility] 15:56:00 Temperature 2018-05-13 98.3 [degF] [facility] 15:56:00 BP Systolic 2018-05-04 144 mm[Hg] Location: RUE; [facility] 11:07:00 Position: Sitting BP Diastolic 2018-05-04 88 mm[Hg] Location: RUE; [facility] 11:07:00 Position: Sitting Height 2018-05-04 61 [in_us] [facility] 11:07:00 Weight 2018-05-04 150 [lb_av] [facility] 11:07:00 Body Mass Index 2018-05-04 28.34 kg/m2 [facility] 11:07:00 Temperature 2018-05-04 97.8 [degF] [facility] 11:07:00 BP Systolic 2018-04-29 134 mm[Hg] Location: LUE; [facility] 13:46:00 Position: Sitting BP Diastolic 2018-04-29 80 mm[Hg] Location: LUE; [facility] 13:46:00 Position: Sitting Height 2018-04-29 61 [in_us] [facility] 13:46:00 Weight 2018-04-29 150 [lb_av] [facility] 13:46:00 Body Mass Index 2018-04-29 28.34 kg/m2 [facility] Cal[facility] 13:46:00 Temperature 2018-04-29 97.8 [degF] [facility] 13:46:00 Height 2018-04-01 152.4 cm [facility] Jose n 17:16:00 Weight 2018-04-01 [facility] Jose n 17:16:00 BMI Calculated 2018-04-01 [facility] 17:16:00 Systolic (mm Hg) 2018-04-01 [facility] Zuhair rmann 17:16:00 Diastolic (mm Hg) 2018-04-01 [facility] ermann 17:16:00 Temperature Oral 2018-04-01 98.4 F [facility] rmann (F) 17:16:00 Heart Rate 2018-04-01 [facility] Jose n 17:16:00 Weight 2018-02-04 [facility] Jose n 16:19:00 BMI Calculated 2018-02-04 [facility] Herm marlon 16:19:00 Height 2018-02-04 153.67 cm [facility] Jose n 16:19:00 Heart Rate 2018-02-04 [facility] Jose n 16:19:00 Temperature Oral 2018-02-04 98.6 F [facility] rmann (F) 16:19:00 Systolic (mm Hg) 2018-02-04 [facility] rmann 16:19:00 Diastolic (mm Hg) 2018-02-04 [facility] ermann 16:19:00 Procedures Procedure Date / Time Performing Clinician Source Performed Extraction of Bryan Tooth 2021-10-16 00:00:00 [facility], breast, bilateral 2020-12-31 00:00:00 [facility] MAMMO, diagnostic, digital, 2020-12-31 00:00:00 [facility] Practice X-RAY HIP UNLIATERAL (2-3 2020-12-31 00:00:00 [facility]) Practice US, breast, bilateral 2020-09-18 00:00:00 [facility] MAMMO, diagnostic, digital, 2020-09-18 00:00:00 [facility] Practice X-RAY CERVICAL SPINE 2 OR 3 2020-09-18 00:00:00 [facility] Practice MAMMO, diagnostic, digital, 2020-06-15 00:00:00 [facility] Practice US, breast, bilateral 2020-06-15 00:00:00 [facility] MAMMO, screening, digital, 2020-01-31 00:00:00 [facility] bilateral Practice MAMMO, diagnostic, digital, 2019-06-23 00:00:00 [facility] unilateral Practice US, breast, unilateral 2019-06-23 00:00:00 [facility] electrocardiogram 2019-03-30 00:00:00 [facility] MAMMO, diagnostic, digital, 2019-02-25 00:00:00 [facility] Practice US, breast, unilateral 2019-02-25 00:00:00 [facility] MAMMO, diagnostic, digital, 2019-01-30 00:00:00 [facility] Practice US, breast, unilateral 2019-01-30 00:00:00 [facility] MAMMO, screening, digital, 2018-12-03 00:00:00 [facility] bilateral Practice CT, abdomen + pelvis, w/o 2018-12-03 00:00:00 [facility] Practice [[facility]] CULTURE, URINE, 2018-08-30 00:00:00 [facility] [[facility]] CULTURE, URINE, 2018-07-27 00:00:00 [facility] Cystoscopy 2018-07-13 06:00:00 [facility] Laparoscopic total 2018-07-13 06:00:00 [facility] hysterectomy using robotic assistance Retropubic urethral 2018-07-13 06:00:00 [facility] suspension [[facility]] CULTURE, URINE, 2018-07-12 00:00:00 [facility] ROUT[facility] Unlisted Px Urinary System 2018-05-18 00:00:00 [facility] Hysterectomy (Total) 2018-05-18 00:00:00 [facility] [[facility]] CULTURE, URINE, 2018-04-29 00:00:00 [facility] ROUT[facility] History of Knee [facility] Ear Tube [facility] Unlisted Px Dentalvlr Strux [facility] Arthroscopy<sup>1</sup> [facility] Plan of Care Planned Activity Planned Date Details Comments Source Diagnostic Test Pending 2022-04-15 T3, free, serum [facility] 00:[facility]:00 or plasma [code = Practice T3, free, serum or plasma] Diagnostic Test Pending 2022-04-15 T4, free, serum [facility] 00:00:00 [code = T4, free, Practice serum] Diagnostic Test Pending 2022-04-15 TSH, serum or Favian ijeoma [facility] 00:00:00 plasma [code = Practice TSH, serum or plasma] Future Scheduled Test Your labs are [facility] normal except... Practice 1. Your thyroid is a little abnormal. I will recheck labs. [code = Your labs are normal except... 1. Your thyroid is a little abnormal. I will recheck labs.] Future Appointment 2022-05-15 Nghia Lambert [address] [address] [facility] 11:30:[address], [place] [address] Instructions [facility] Encounters Start End Encounter Admission Attending Care Care Encounter Source Date/Time Date/Time Type Type Clinicians Facility Department ID 2022-04-15 2022-04-15 Outpatient Bui_Q [facility] VF [id number] [facility] 00:00:00 00:00:00 [id number] [facility] Practic e 2022-04-15 2022-04-15 Nghia Ceja VF [place] - [id number] [address] [place] [address] 00:00:00 00:00:00 MD Petra: [facility] Famil y 15405 Medical - Practi c [place] - [place] CRISTIAN_DORAU_Mark Fox, [address], [place] [address] , Ph. 2022-03-03 2022-03-03 Outpatient Bui_Q VFP VFP [id number] [facility] 00:00:00 00:00:00 [id number] Family Practic e 2022-03-03 2022-03-03 Nghia Ceja VFP [place] - [id number] [facility] 00:00:00 00:00:00 MD Petra: [facility] Famil y [address] Medical - Pract[place] c [place] [address], [place] [address] [place] [address] , Ph. 2022-02-16 2022-02-16 Outpatient Bui_Q VFP VFP [id number] [facility] 00:00:00 00:00:00 [id number] Family Practic e 2022-02-03 2022-02-03 Outpatient Bui_Q_WAGDN VFP VFP [id number] [facility] 00:00:00 00:00:00 U [id number] Family Practic e 2022-02-03 2022-02-03 Nghia Ceja VFP [place] - [id number] [facility] 00:00:00 00:00:00 MD Petra: [facility] Famil y [address]185 Medical - Pract[place] c [place] [address], [place] [address] [place] [phone] , Ph. 2022-01-06 2022-01-06 Outpatient Bui_Q_WAGDN VFP VFP [id number] [facility] 00:00:00 00:00:00 U [id number] Family Practic e 2022-01-02 2022-01-02 Outpatient Bui_Q VFP VFP [id number] [facility] 00:00:00 00:00:00 [id number] Family Practic e 2022-01-02 2022-01-02 Nghia Ceja VFP [place] - [id number] [facility] 00:00:00 00:00:00 MD Petra: [facility] Famil y 17213 Medical - Practi c Shadow VM_HOU_[address] [place] [address], [place] [address] , Ph. 2021-12-28 2021-12-28 Outpatient Bui_Q VFP VFP [id number] [facility] 00:00:00 00:00:00 [id number] Family Practic e 2021-07-23 2021-07-23 Outpatient Bui_Q VFP VFP [id number] [facility] 02:50:00 02:50:00 Family Practic e 2021-06-18 2021-06-18 Outpatient Bui_Q VFP VFP [id number] [facility] 02:11:00 02:11:00 Family Practic e 2021-06-14 2021-06-14 Outpatient Bui_Q VFP VFP [id number] [facility] 09:05:00 09:05:00 Family Practic e 2021-06-11 2021-06-11 Outpatient Bui_Q VFP VFP [id number] [facility] 11:58:00 11:58:00 Family Practic e 2021-06-11 2021-06-11 Nghia Ceja VFP [place] - [id number] [facility] 00:00:00 00:00:00 MD Petra: [facility] Famil y [address] ([place] [address] , Ph. 2021-06-10 2021-06-10 Outpatient Bui_Q VFP VFP [id number] [facility] 12:23:00 12:23:00 Family Practic e 2021-05-23 2021-05-23 Outpatient Bui_Q_WAGDN VFP VFP [id number] [facility] 11:37:00 11:37:00 U Family Practic e 2021-05-23 2021-05-23 Outpatient Bui_Q_WAGDN VFP VFP [id number] [facility] 11:37:00 11:37:00 U Family Practic e 2021-05-14 2021-05-14 Outpatient Bui_Q VFP VFP [id number] [facility] 02:23:00 02:23:00 [id number] Family Practic e 2021-05-14 2021-05-14 Nghia Ceja VFP [place] - [id number] [facility] 00:00:00 00:00:00 MD Petra: [facility] Famil y 6122 [facility] ([facility]) [place] [address] , Ph. 2021-05-13 2021-05-13 Outpatient Bui_Q VFP VFP [id number] [facility] 09:23:00 09:23:00 [id number] Family Practic e 2021-05-09 2021-05-09 Outpatient Bui_Q_WAGDN VFP VFP [id number] [facility] 10:18:00 10:18:00 U [id number] Family Practic e 2021-05-01 2021-05-01 Outpatient RAO Lambert [facility] [id number] [facility] 12:00:00 12:00:00 08 [facility] 2021-04-20 2021-04-20 Outpatient Bui_Q_WAGDN VFP VFP [id number] [facility] 05:20:00 05:20:00 U [id number] Family Practic e 2021-03-16 2021-03-16 Outpatient Bui_Q_WAG VFP VFP [id number] [facility] 01:02:00 01:02:00 [id number] Family Practic e 2021-02-25 2021-02-25 Outpatient Bui_Q VFP VFP [id number] [facility] 11:27:00 11:27:00 [id number] Family Practic e 2021-02-21 2021-02-21 Outpatient Bui_Q_WAG VFP VFP [id number] [id number] [facility] 11:27:00 11:27:00 [id number] Family Practic e 2021-02-18 2021-02-18 Outpatient Bui_Q_WAG VFP VFP [id number] [facility] 04:58:00 04:58:00 [id number] Family Practic e 2021-02-18 2021-02-18 Nghia Ceja VFP [place] - [id number] [facility] 00:00:00 00:00:00 MD Petra: [facility] y [address] [place] [address], ([facility]) [place] [address] , Ph. 2021-02-13 2021-02-13 Outpatient Bui_Q VFP VFP [id number] [facility] 08:59:00 08:59:00 [id number] Family Practic e 2021-02-13 2021-02-13 Outpatient Bui_Q VFP VFP [id number] [facility] 08:59:00 08:59:00 [id number] Family Practic e 2021-02-13 2021-02-13 Outpatient Nghia Hinojosa HCAPM RADI LA00 [id number] [facility] 08:52:00 08:52:00 32 [facility] 2021-02-13 2021-02-13 Kiranchand VFP [place] - [id number] [facility] 00:00:00 00:00:00 ra [facility] Medical - Pract alanis Sykes MD: VM_HOU_[facility] e 6122 [facility] [address], [place] [address] , Ph. 2021-02-04 2021-02-04 Outpatient Bui_Q_WAG VFP VFP [id number] [facility] 12:32:00 12:32:00 [id number] Family Practic e 2021-02-04 2021-02-04 Outpatient Bui_Q VFP VFP [id number] [facility] 12:32:00 12:32:00 [id number] Family Practic e 2021-02-04 2021-02-04 Outpatient Bui_Q VFP VFP [id number] [facility] 12:32:00 12:32:00 [id number] Family Practic e 2021-01-30 2021-01-30 Outpatient Bui_Q_WAG VFP VFP [id number] [facility] 02:01:00 02:01:00 [id number] Family Practic e 2021-01-30 2021-01-30 Outpatient Bui_Q VFP VFP [id number] [facility] 02:01:00 02:01:00 [id number] Family Practic e 2021-01-05 2021-01-05 Outpatient Bui_Q VFP VFP [id number] [facility] 12:43:00 12:43:00 [id number] Family Practic e 2020-12-31 2020-12-31 Outpatient Bui_Q_WAG VFP VFP [id number] [facility] 07:58:00 07:58:00 [id number] Family Practic e 2020-12-312020-12-31 Nghia Ceja VFP [place] - [id number] [facility] 00:00:00 00:00:00 MD Petra: [facility] y 6122 [facility] [place] [address], ([facility]) [place] [address] , Ph. 2020-12-26 2020-12-26 Outpatient Bui_Q_WAG VFP VFP [id number] [id number] [facility] 12:48:00 12:48:00 [id number] Family Practic e 2020-12-26 2020-12-26 Outpatient Bui_Q VFP VFP [id number] [facility] 12:48:00 12:48:00 [id number] Family Practic e 2020-11-21 2020-11-21 Outpatient Bui_Q_WAG VFP VFP [id number] [facility] 01:22:00 01:22:00 [id number] Family Practic e 2020-11-21 2020-11-21 Outpatient Bui_Q VFP VFP [id number] [facility] 01:22:00 01:22:00 [id number] Family Practic e 2020-10-18 2020-10-18 Outpatient Bui_Q VFP VFP [id number] [facility] 01:02:00 01:02:00 [id number] Family Practic e 2020-09-30 2020-09-30 Outpatient Bui_Q VFP VFP [id number] [facility] 06:54:00 06:54:00 [id number] Family Practic e 2020-09-27 2020-09-27 Outpatient GC_SWHAWPRC PRIV PRIV [id number] [facility] 03:08:00 03:08:00 _Lotze_P [id number] Medic al 2020-09-22 2020-09-22 Outpatient Bui_Q VFP VFP [id number] [facility] 02:13:00 02:13:00 [id number] Family Practic e 2020-09-18 2020-09-18 Outpatient Bui_Q_WAG VFP VFP [id number] [id number] [facility] 02:29:00 02:29:00 [id number] Family Practic e 2020-09-18 2020-09-18 Nghia Ceja VFP [place] - [id number] [address] [place] [address] 00:00:00 00:00:00 MD Petra: [facility] 6122 Medical - Practi c Ang[place] VM_HOU_[place] , [place] [address], ([facility]) [place] [address] , Ph. 2020-09-13 2020-09-13 Outpatient Bui_Q VFP VFP [id number] [facility] 01:03:00 01:03:00 [id number] Family Practic e 2020-09-13 2020-09-13 Outpatient Bui_Q VFP VFP [id number] [facility] 01:03:00 01:03:00 [id number] Family Practic e 2020-08-09 2020-08-09 Outpatient Bui_Q VFP VFP [id number] [facility] 01:02:00 01:02:00 [id number] Family Practic e 2020-07-05 2020-07-05 Outpatient Bui_Q VFP VFP [id number] [facility] 01:03:00 01:03:00 [id number] Family Practic e 2020-06-18 2020-06-18 Outpatient Bui_Q VFP VFP [id number] [facility] 09:11:00 09:11:00 [id number] Family Practic e 2020-06-15 2020-06-15 Outpatient Bui_Q VFP VFP [id number] [facility] 04:00:00 04:00:00 [id number] Family Practic e 2020-06-15 2020-06-15 Nghia Ceja VFP [place] - [id number] [facility] 00:00:00 00:00:00 MD Petra: [facility] Famil y [address] Medical - Practi c [place] VM_HOU_[place] ow [facility] [address], [place] [address] , Ph. 2020-04-08 2020-04-08 Outpatient Bui_Q_WAG VFP VFP [id number] [facility] 04:49:00 04:49:00 [id number] Family Practic e 2020-04-01 2020-04-01 Outpatient Bui_Q_WAG VFP VFP [id number] [facility] 01:02:00 01:02:00 [id number] Family Practic e 2020-04-01 2020-04-01 Outpatient Bui_Q VFP VFP [id number] [facility] 01:02:00 01:02:00 [id number] Family Practic e 2020-03-07 2020-03-07 Outpatient Bui_Q_WAG VFP VFP [id number] [facility] 02:38:00 02:38:00 [id number] Family Practic e 2020-02-10 2020-02-10 Outpatient Bui_Q VFP VFP [id number] [facility] 11:12:00 11:12:00 [id number] Family Practic e 2020-02-10 2020-02-10 Outpatient Bui_Q VFP VFP [id number] [facility] 11:12:00 11:12:00 [id number] Family Practic e 2020-02-02 2020-02-02 Outpatient Bui_Q_WAG VFP VFP [id number] [facility] 08:11:00 08:11:00 [id number] Family Practic e 2020-01-31 2020-01-31 Outpatient Bui_Q_WAG VFP VFP [id number] [facility] 04:29:00 04:29:00 [id number] Family Practic e 2020-01-31 2020-01-31 Nghia Ceja VFP [place] - [id number] 5 [facility] 00:00:00 00:00:00 MD Petra: [facility] 6122 [facility] [place] [address], ([facility]) [place] [address] , Ph. 2019-10-31 2019-10-31 Outpatient Bui_Q_WAG VFP VFP [id number] [facility] 03:09:00 03:09:00 [id number] Family Practic e 2019-10-31 2019-10-31 Outpatient Bui_Q VFP VFP [id number] [facility] 03:09:00 03:09:00 [id number] Family Practic e 2019-10-31 2019-10-31 Outpatient Bui_Q VFP VFP [id number] [facility] 03:09:00 03:09:00 [id number] Family Practic e 2019-10-27 2019-10-27 Outpatient Bui_Q_WAG VFP VFP [id number] [facility] 10:16:00 10:16:00 [id number] Family Practic e 2019-10-27 2019-10-27 Nghia Ceja VFP [place] - [id number] [facility] 00:00:00 00:00:00 MD Petra: [facility] Baylee y [address] [address] , Ph. 2019-10-24 2019-10-24 Outpatient Bui_Q_WAG VFP VFP [id number] [facility] 06:38:00 06:38:00 [id number] Family Practic e 2019-10-02 2019-10-02 Outpatient Bui_Q_WAG VFP VFP [id number] [facility] 11:46:00 11:46:00 [id number] Family Practic e 2019-10-02 2019-10-02 Outpatient Bui_Q VFP VFP [id number] [facility] 11:46:00 11:46:00 [id number] Family Practic e 2019-09-29 2019-09-29 Outpatient Bui_Q_WAG VFP VFP [id number] [facility] 12:55:00 12:55:00 [id number] Family Practic e 2019-09-29 2019-09-29 Nghia Ceja VFP [place] - [id number] [address] [place] [address] 00:00:00 00:00:00 MD Petra: [facility] Baylee rosas [address] ([place] [address] , Ph. 2019-09-16 2019-09-16 Outpatient Bui_Q_WAG VFP VFP [id number] [facility] 12:53:00 12:53:00 [id number] Family Practic e 2019-09-16 2019-09-16 Outpatient Bui_Q VFP VFP [id number] [facility] 12:53:00 12:53:00 [id number] Family Practic e 2019-08-25 2019-08-25 Outpatient Bui_Q_WAG VFP VFP [id number] [id number] [facility] 04:45:00 04:45:00 [id number] Family Practic e 2019-08-22 2019-08-22 Outpatient Bui_Q_WAG VFP VFP [id number] [facility] 05:57:00 05:57:00 [id number] Family Practic e 2019-08-22 2019-08-22 Nghia Ceja VFP [place] - [id number] [address] [place] [address] 00:00:00 00:00:00 MD Petra: [facility] y [address] [place] [address], ([place] [address] , Ph. 2019-08-12 2019-08-12 Outpatient Bui_Q_WAG VFP VFP [id number] [facility] [facility] 01:52:00 01:52:00 03436 Family Practic e 2019-07-28 2019-07-28 Outpatient Bui_Q_WAG VFP VFP [id number] [facility] 02:39:00 02:39:00 44038 Family Practic e 2019-07-25 2019-07-25 Outpatient Bui_Q VFP VFP [id number] [facility] 01:59:00 01:59:00 40428 Family Practic e 2019-07-21 2019-07-21 Outpatient Bui_Q_WAG VFP VFP [id number] [facility] 06:34:00 06:34:00 34942 Family Practic e 2019-07-21 2019-07-21 Nghia Ceja VFP [place] - [id number] [address] [place] [address] 00:00:00 00:00:00 MD Petra: [facility] Baylee [address] [address], ([facility]) [place] [address] , Ph. 2019-07-12 2019-07-12 Outpatient Bui_Q VFP VFP [id number] [facility] 05:05:00 05:05:00 09508 Family Practic e 2019-07-08 2019-07-08 Outpatient Bui_Q_WAG VFP VFP [id number] [facility] 07:37:00 07:37:00 12566 Family Practic e 2019-06-29 2019-06-29 Outpatient Bui_Q VFP VFP [id number] [facility] 02:26:00 02:26:00 94867 Family Practic e 2019-06-23 2019-06-23 Outpatient [facility] [id number] [facility] 06:14:00 06:14:00 22945 Family Practic e 2019-06-23 2019-06-23 Nghia Ceja VF [place] - [id number] 6 [facility] 00:00:00 00:00:00 MD Petra: [facility] Famil y [address] Medical - Practi c Angella VM_HOU_[facility] [address], ([place] [address] , Ph. 2019-05-13 2019-05-13 Out[address] Bui_Q [facility] [id number] [facility] 12:59:00 12:59:00 82942 Family Practic e 2019-04-19 2019-04-19 Nghia Ceja [facility] [place] - [id number] 3 [facility] 00:00:00 00:00:00 MD Petra: [facility] [address] Medical - Practi c [place], [address] [address] , Ph. 2019-03-30 2019-03-30 Nghia Ceja [facility] [place] - [id number] 3 [facility] 00:00:00 00:00:00 MD Petra: [facility] [address] Medical - Practi c Angella, _HOU[address], [place] [address] , Ph. 2019-02-25 2019-02-25 Nghia Ceja VF [place] - [id number] 1 [facility] 00:00:00 00:00:00 MD Petra: [facility] Famil y [address] [facility] [address] [place], Practice - e [address], [facility] [place] [address] , Ph. 2019-02-01 2019-02-01 Nghia Ceja VF [place] - [id number] 7 [facility] 00:00:00 00:00:00 MD Petra: [facility] Famil y [address] [facility] [place], Practice - e [address], [facility] [place] [address] , Ph. 2018-12-03 2018-12-03 Nghia Ceja [facility] [place] - [id number] 9 [facility] 00:00:00 00:00:00 MD Petra: [facility] Famil y [address] [facility] - e [address], [facility] [address] , Ph. 2018-11-03 2018-11-05 Phone nullFlavo [facility] [id number] [facility]oria 18:20:43 04:59:59 Message r Primary 01 cande [facility] 2018-11-03 2018-11-04 Outpatient MHMG [facility] [id number] 13:20:43 23:59:59 01 2018-11-01 2018-11-02 Outpatient nullFlavo [facility] [id number] [facility] 14:00:00 04:59:59 r Radiology 11 l Marisa grewal 2018-11-01 2018-11-01 Outpatient VISIT, [facility] [id number] 09:00:00 23:59:59 NURSE STRB 11 ABRAM 2018-11-01 2018-11-01 Outpatient MHIE MHIE [id number] [facility] 09:00:00 09:00:00 11 cande Rivas 2018-10-22 2018-10-23 Outpatient nullFlavo [facility] [id number] [facility] 18:40:00 04:59:59 r Primary 10 Marcial [facility] 2018-10-22 2018-10-22 Outpatient Huff, MHMG [facility] [id number] 13:40:00 23:59:59 Helen 10 2018-10-22 2018-10-22 Outpatient MHIE MHIE [id number] Memoria 13:40:00 13:40:00 10 cande Rivas 2018-09-27 2018-09-27 Appointmen RUBIN MACK [facility] [id number] [place] 13:20:00 13:20:00 t; ROGERIO MACK gy Center Ph Bisi Palm M.D. 2018-08-30 2018-08-30 Appointmen RUBIN MACK [facility] 521 [id number] [place] 14:10:00 14:10:00 t; ROGERIO MACK gy Center Ph Bisi [place] mayr Mathews 2018-08-24 2018-08-24 Appointmen MARTINARUBIN Forbes UTP [id number] [place] 13:20:00 13:20:00 t; ROGERIO MACK Phys ici BRANDON, M.D. ans M.D. 2018-07-27 2018-07-27 Appointmen RUBIN MACK [facility] 500 [id number] [place] 13:20:00 13:20:00 t; ROGERIO MACK gy [place] Ph josué BEATYT M.D. [facility] mary Mathews 2018-07-15 2018-07-15 Appointmen RUBIN MACK [facility] 509 [id number] [place] 09:50:00 09:50:00 t; ROGERIO MACK gy [place] Ph josué BEATTY M.D. [facility] mary Mathews 2018-07-13 2018-07-14 Bedded nullFlavo [facility] [id number] Memoria 17:02:00 20:15:00 Outpatient [facility] 2018-07-13 2018-07-14 [place] [id number] 11:02:00 14:15:00 Callie 2018-07-13 2018-07-13 Appointmen MARTINARUBIN UTP [id number] [place] 15:30:00 15:30:00 t; ROGERIO MACK Phys ici BRANDON, M.D. ans M.D. 2018-07-12 2018-07-12 Appointmen MARTINARUBIN Forbes [facility] 504 [id number] [place] 13:20:00 13:20:00 t; ROGERIO MACK gy [place] Ph josué BEATTY M.D. [facility] mary Mathews 2018-07-07 2018-07-07 Appointmen MARTINARUBIN Forbes UTP [id number] [place] 13:20:00 13:20:00 t; ROGERIO MACK Phys ici BRANDON, M.D. ans M.D. 2018-06-09 2018-06-10 Outpatient nullFlavo [facility] [id number] Memoria 20:00:00 05:59:59 r Primary 09 l [facility] 2018-06-09 2018-06-09 Outpatient Franklin [facility] [id number] 14:00:00 23:59:59 Jerecia 09 [place] 2018-06-09 2018-06-09 Outpatient [place] [facility] MG [id number] 14:00:00 23:59:59 Jerecia 09 Stewart 2018-06-09 2018-06-09 Outpatient MHIE MHIE [id number] Memoria 14:00:00 14:00:00 09 l Orb 2018-05-27 2018-05-27 Appointmen RUBIN MACK [facility] [id number] [place] 15:20:00 15:20:00 t; ROGERIO MACK gy Center Ph Bisi Palm M.D. 2018-05-13 2018-05-13 Appointmen RUBIN FLYNN [facility] 4 [id number] [place] 16:10:00 16:10:00 t; RITESH WILCOX gy Center [facility] RITESH WILCOX 2018-05-04 2018-05-04 Appointmen RUBIN FLYNN [facility] 4 [id number] [place] 11:00:00 11:00:00 t; RITESH WILCOX gy Center Ph [facility] RITESH WILCOX 2018-05-04 2018-05-04 Appointmen RUBIN FLYNN [facility] 4 [id number] [place] 11:00:00 11:00:00 t; RITESH WILCOX gy Center Ph [facility] RITESH WILCOX 2018-04-29 2018-04-29 Appointmen RUBIN MACK [facility] 481 [id number] [place] 13:40:00 13:40:00 t; ROGERIO MACK gy Center Ph Bisi Palm M.D. 2018-04-01 2018-04-02 [place] [id number] Memoria 17:20:00 05:59:59 r Primary 08 cande Marcial Rivas [place] 2018-04-01 2018-04-01 Outpatient Refugio SWAPNILMG MG [id number] 11:20:00 23:59:59 Helen 08 2018-04-01 2018-04-01 Outpatient MHIE MHIE [id number] Memoria 11:20:00 11:20:00 08 cande Rivas 2018-02-09 2018-02-11 Phone nullFlavo [facility] [id number] Memoria 21:05:00 04:59:59 Message r Primary 00 cande Mauricio 2018-02-09 2018-02-10 Outpatient MHMG MH[facility] [id number] 16:05:00 23:59:59 00 2018-02-04 2018-02-05 Outpatient nullFlavo [facility] [id number] Memoria 16:20:00 04:59:59 r Primary 07 cande Ceja Robmarlon Mauricio 2018-02-04 2018-02-04 Outpatient Refugio, MHMG [facility] [id number] 11:20:00 23:59:59 Helen 07 2018-02-04 2018-02-04 Outpatient MHIE MHIE [id number] Memoria 11:20:00 11:20:00 07 cande Rivas 2017-09-08 2017-09-08 Ambulatory nullFlavo [facility] [employer] 4 [id number] Memoria 19:30:00 19:30:00 Pre-Reg r Anais 04 cande Rivas 2017-09-08 2017-09-08 Ambulatory nullFlavo [facility] [id number] Memoria 19:00:00 19:00:00 Pre-Reg r Radiology 03 cande Rivas 2017-09-08 2017-09-08 Outpatient Jose Angel [facility] [id number] 14:30:00 14:30:00 , Luther Cisneros 2017-09-08 2017-09-08 Outpatient MHIE MHIE [id number] Memoria 14:00:00 14:00:00 03 cande Rivas 2017-09-08 2017-09-08 Outpatient VISIT, MHMG MH[facility] [id number] 14:00:00 14:00:00 NURSE STWC 03 ANABELLEEvelia 2017-01-08 2017-01-08 Outpatient MHIE MHIE [id number] Memoria 13:00:00 13:00:00 05 cande Jane Lew 2016-09-04 2016-09-04 Outpatient MHIE MHIE [id number] Memoria 14:30:00 14:30:00 02 cande Rob 2016-09-04 2016-09-04 Outpatient MHIE MHIE [id number] Memoria 14:30:00 14:30:00 06 cande Rivas 2016-09-04 2016-09-04 Outpatient NIRAJ HEALY [id number] Memoria 14:00:00 14:00:00 01 cande Rob 2016-08-01 2016-08-01 Outpatient NIRAJ HEALY [id number] Memoria 10:30:00 10:30:00 00 cande Rob Results Test Description Test Time Test Comments Results Result Comments Source Noninvasive colorectal cancer DNA and occult blood scr eening 2022-02-07 14:39:00 [Presence] in Stool Test Item Value Reference Range Interpretation Comme nts cologuard result reportable (test code = cologuard result negative negative reportable) [facility]- XR HIP W/PEL UNI 2+V [id number] 09:20:00 [facility] 1975 Sex: F Name: EVERETT HAGER [facility] : 1975 Age/S: 45 / F [id number] Unit #: [id number] Loc: [place] [address] Phys: Nghia Lambert MD Acct: [id number] Dis Date: Status: REG CLI PHONE #: [phone] Exam Date: 02/13/2021914 FAX #: Reason: PAIN RIGHT HIP EXAMS: CPT: [id number] XR HIP W/PE L UNI 2+[place] [address] Fluoro Time: DAP (Gy m2): Air Kerma (mGy): REASON FOR EXAM: Right hip pain. Two-view right hip. Good alignment seen at the right hip with normal joint space appearance and normal mineralization. No erosive changes, fractures or soft tissue calcifications. IMPRESSION: Negative righthip. Location: U 19 at 0920 Reported and signed by: Marbin Solis M.D. CC: Nghia Lambert MD PAGE 1 Signed Report Name: EVERETT HAGER [facility] : 1975 Age/S: 45 / F [id number] Unit #: [id number] Loc: [place] [address] Phys: Nghia Lambert MD Acct: [id number] Dis Date: Status: REG CLI PHONE #: [phone] Exam Date: 02/13/2021914 FAX #: Reason: PAIN RIGHT HIP EXAMS: CPT: [id number] XR HIP W/PEL UNI 2+VRT 62372 Fluoro Time: DAP (Gy m2): Air Kerma (mGy): (Continued) Technologist: Halley De Leon, RT(R) Trnscb Date/Time: 02/13/2021 (09) [id number] Orig Print D/T: S: 02/13/2021 (5671) PAGE 2 Signed ReportCBC W Auto Differential panel - [id number] 00:00:00 Test Item Value Reference Range Interpretation Comments WBC (test code = WBC) 5.39 x10*3/?L 4.00-11.00 RBC (test code = RBC) 4.29 10*12/L 3.93-5.22 hemoglobin (test code = 13.10 g/dL 11.20-15.70 hemoglobin) hematocrit (test code = 38.5 % 34.1-44.9 hematocrit) MCV (test code = MCV) 89.7 fL 80.0-100.0 MCH (test code = MCH) 30.5 pg 25.6-32.2 MCHC (test code = MCHC) 34.0 g/dL 32.2-35.5 RDW-SD (test code = RDW-SD) 38.5 fL 36.4-46.3 platelet count (test code = 217.0 k/uL 150.0-400.0 platelet count) MPV (test code = MPV) 11.3 fL 7.5-11.5 neut% (test code = neut%) 59.0 % 34.0-71.1 lymph% (test code = lymph%) 28.9 % 19.3-51.7 mon% (test code = mon%) 9.8 % 4.7-12.5 eos% (test code = eos%) 1.7 % 0.7-5.8 baso% (test code = baso%) 0.4 % 0.1-1.2 neut# (test code = neut#) 3.2 x10*3/?L 1.6-6.1 lymph# (test code = lymph#) 1.6 x10*3/?L 1.2-3.7 mon# (test code = mon#) 0.5 x10*3/?L 0.2-0.9 eos# (test code = eos#) 0.09 x10*3/?L 0.04-0.36 baso# (test code = baso#) 0.02 x10*3/?L 0.01-0.08 [facility] 2000 [facility] - Serum or Plasma 2021-02-13 00:00:00 Test Item Value Reference Range Interpretation Comments ALT (test code = ALT) 19 U/L 0-55 AST (test code = AST) 12 U/L 5-34 BUN (test code = BUN) 13.7 mg/dL 7.0-25.0 alk phos (test code = alk phos) 69 unit/L 40-150 glucose (test code = glucose) 79 mg/dL 70-99 albumin (test code = albumin) 4.1 g/dL 3.4-5.1 creatinine (test code = 0.93 mg/dL 0.57-1.11 creatinine) eGFR non- (test >60 code = eGFR non-) total bilirubin (test code = 0.6 mg/dL 0.2-1.2 total bilirubin) eGFR - (test >60 code = eGFR - ) sodium (test code = sodium) 146 mEq/L 135-145 H potassium (test code = potassium) 4.4 mEq/L 3.5-5.3 chloride (test code = chloride) 112 mmol/L 98-110 H total protein (test code = total 6.7 g/dL 6.1-8.2 protein) calcium (test code = calcium) 9.8 mg/dL 8.4-10.4 CO2 (test code = CO2) 25.0 mmol/L 20.0-32.0 anion gap (test code = anion gap) 9 calc [facility] 1996 panel - Serum or [id number] 00:00:00 Test Item Value Reference Range Interpretation Comments HDL (test code = HDL) 45 mg/dL L triglyceride (test code = 143 mg/dL <150 triglyceride) VLDL (calculated) (test code = VLDL 29 mg/dL (calculated)) cholesterol/HDL ratio (test code = 3.8 mg/dL cholesterol/HDL ratio) non-HDL cholesterol (calculated) 125 mg/dL <160 (test code = non-HDL cholesterol (calculated)) cholesterol (test code = 170 mg/dL <200 cholesterol) Cholesterol in LDL [Mass/volume] in 96 mg/dL <130 Serum or Plasma (test code = 2089-1) [facility] CenterThyrotropin [Units/volume] in Serum or [id number] 00:00:00 Test Item Value Reference Range Interpretation Comments TSH (test code = TSH) 0.608 uIU/mL 0.350-4.940 [facility] CenterHemoglobin A1c/Hemoglobin.total in [id number] 00:00:00 Test Item Value Reference Range Interpretation Comments Hemoglobin A1c/Hemoglobin.total in 5.0 % 1.0-5.7 Blood (test code = 4548-4) average blood glucose (calculation) 97 mg/dL (test code = average blood glucose (calculation)) [facility] CenterEKG [id number] 02:21:00Rate & RhythmQrsPR IntervalQRS DurationQT IntervalVillage St[facility]CBC W Auto Differential panel - [id number] 00:00:00 Test Item Value Reference Range Interpretation Comments WBC (test code = WBC) 5.66 x10*3/?L 3.98-10.04 RBC (test code = RBC) 4.81 10*12/L 3.93-5.22 hemoglobin (test code = 14.80 g/dL 11.20-15.70 hemoglobin) hematocrit (test code = 43.4 % 34.1-44.9 hematocrit) MCV (test code = MCV) 90.2 fL 80.0-100.0 MCH (test code = MCH) 30.8 pg 25.6-32.2 MCHC (test code = MCHC) 34.1 g/dL 32.2-35.5 RDW-SD (test code = RDW-SD) 41.8 fL 36.4-46.3 platelet count (test code = 201.0 k/uL 182.0-369.0 platelet count) MPV (test code = MPV) 12.4 fL 7.5-11.5 H neut% (test code = neut%) 60.0 % 34.0-71.1 lymph% (test code = lymph%) 28.3 % 19.3-51.7 mon% (test code = mon%) 9.9 % 4.7-12.5 eos% (test code = eos%) 1.4 % 0.7-5.8 baso% (test code = baso%) 0.4 % 0.1-1.2 neut# (test code = neut#) 3.4 x10*3/?L 1.6-6.1 lymph# (test code = lymph#) 1.6 x10*3/?L 1.2-3.7 mon# (test code = mon#) 0.6 x10*3/?L 0.2-0.9 eos# (test code = eos#) 0.08 x10*3/?L 0.04-0.36 baso# (test code = baso#) 0.02 x10*3/?L 0.01-0.08 [facility] 2000 panel - Serum or Plasma 2019-02-02 00:00:00 Test Item Value Reference Range Interpretation Comments ALT (test code = ALT) 67 U/L 0-55 H AST (test code = AST) 34 U/L 5-34 BUN (test code = BUN) 13.7 mg/dL 7.0-25.0 alk phos (test code = alk phos) 70 unit/L 40-150 glucose (test code = glucose) 78 mg/dL 70-99 albumin (test code = albumin) 4.3 g/dL 3.4-5.1 creatinine (test code = 0.87 mg/dL 0.57-1.11 creatinine) eGFR non- (test >60 code = eGFR non-) total bilirubin (test code = 0.6 mg/dL 0.2-1.2 total bilirubin) eGFR - (test >60 code = eGFR - ) sodium (test code = sodium) 142 mEq/L 135-145 potassium (test code = potassium) 4.0 mEq/L 3.5-5.1 chloride (test code = chloride) 106 mmol/L 98-110 total protein (test code = total 7.5 g/dL 6.1-8.2 protein) calcium (test code = calcium) 9.7 mg/dL 8.6-10.4 CO2 (test code = CO2) 28.1 mmol/L 20.0-32.0 anion gap (test code = anion gap) 8 calc [facility] 1996 panel - Serum or [id number] 00:00:00 Test Item Value Reference Range Interpretation Comments HDL (test code = HDL) 57 mg/dL triglyceride (test code = 120 mg/dL 0-150 triglyceride) VLDL (calculated) (test code = VLDL 24 mg/dL (calculated)) cholesterol/HDL ratio (test code = 3.9 mg/dL cholesterol/HDL ratio) non-HDL cholesterol (calculated) 167 mg/dL 0-160 H (test code = non-HDL cholesterol (calculated)) cholesterol (test code = 224 mg/dL 0-200 H cholesterol) Cholesterol in LDL [Mass/volume] in 143 mg/dL 0-130 H Serum or Plasma (test code = 2089-1) [facility] CenterThyrotropin [Units/volume] in Serum or [id number] 00:00:00 Test Item Value Reference Range Interpretation Comments TSH (test code = TSH) 0.455 uIU/mL 0.350-4.940 [facility] CenterHemoglobin A1c/Hemoglobin.total in [id number] 00:00:00 Test Item Value Reference Range Interpretation Comments Hemoglobin A1c/Hemoglobin.total in 4.7 % 1.0-5.7 Blood (test code = 4548-4) average blood glucose (test code = 88 mg/dL average blood glucose) [facility][O] Urine Dipstick (In Office)2018-08-30 15:17:00 Test Item Value Reference Range Interpretation Comments Glucose (test code = Glucose) neg N LEUKOCYTES (test code = LEUKOCYTES) trace A NITRITE; Normal (test code = 67954-2) neg N UROBILINOGEN; Normal (test code = 0.2 N 71347-4) PROTEIN; Normal (test code = 16982-4) neg N pH (test code = pH) 6.0 N URINE BLOOD; Abnormal (test code = 2+ A 09468-6) SPECIFIC GRAVITY; Normal (test code = 1.020 N 2965-2) KETONES; Abnormal (test code = 06417-4) trace A BILIRUBIN; Normal (test code = 63202-6) neg N [facility]] CULTURE, URINE, [id number] 15:00:01 Test Item Value Reference Range Interpretation Comments FINAL REPORT (test code = FINAL No Growth REPORT) [facility]] CULTURE, URINE, [id number] 13:55:01 Test Item Value Reference Range Interpretation Comments FINAL REPORT (test code = FINAL No Growth REPORT) [facility] Urine Dipstick (In Office)2018-07-27 13:52:00 Test Item Value Reference Range Interpretation Comments Glucose (test code = Glucose) neg N LEUKOCYTES (test code = LEUKOCYTES) neg N NITRITE; Normal (test code = 77605-5) neg N UROBILINOGEN; Normal (test code = 0.2 N 89722-0) PROTEIN; Normal (test code = 12630-6) neg N pH (test code = pH) 7.5 N URINE BLOOD; Abnormal (test code = 1+ A 18589-7) SPECIFIC GRAVITY; Normal (test code = 1.015 N 2965-2) KETONES; Normal (test code = 35099-1) neg N BILIRUBIN; Normal (test code = 20869-0) neg N [place] [facility]iciansCHEM [id number] 11:58:00 Test Item Value Reference Range Interpretation Comments eGFR (test code = eGFR) 84 [facility] [employer] [id number] 11:58:00 Test Item Value Reference Range Interpretation Comments BUN (test code = BUN) 9 7-22 [facility] [place] [id number] 11:58:00 Test Item Value Reference Range Interpretation Comments Glucose Lvl (test code = Glucose Lvl) 113 70-99 [facility]2019-02-27 11:58:00 Test Item Value Reference Range Interpretation Comments Sodium Lvl (test code = Sodium Lvl) 138 135-145 [facility]2019-02-27 11:58:00 Test Item Value Reference Range Interpretation Comments Creatinine Lvl (test code = Creatinine 0.84 0.50-1.40 Lvl) [facility]2019-02-27 11:58:00 Test Item Value Reference Range Interpretation Comments Potassium Lvl (test code = Potassium 4.1 3.5-5.1 Lvl) [facility]2019-02-27 11:58:00 Test Item Value Reference Range Interpretation Comments Calcium Lvl (test code = Calcium Lvl) 8.0 8.5-10.5 [facility]2019-02-27 11:58:00 Test Item Value Reference Range Interpretation Comments Chloride Lvl (test code = Chloride Lvl) 111 95-109 [facility]2019-02-27 11:58:00 Test Item Value Reference Range Interpretation Comments CO2 (test code = CO2) 21 24-32 [facility]2019-02-27 11:58:00 Test Item Value Reference Range Interpretation Comments AGAP (test code = AGAP) 10.1 10.0-20.0 [facility]kqpjymLRYUKCFMMZ7173-50-09 11:58:00 Test Item Value Reference Range Interpretation Comments Basophils (test code = 0.5 See_Comment [Aut omated message] The Basophils) system which ge nerated this result tra nsmitted reference range : <=1.0. The reference r theron was not used to int erpret this result as normal/abnormal . [facility] HospitalXrvlsqbHHIVZJRQSD8402-44-72 11:58:00 Test Item Value Reference Range Interpretation Comments Segs (test code = Segs) 76.8 45.0-75.0 [facility] HospitalLezvivaGMFJVQKJUG6900-54-90 11:58:00 Test Item Value Reference Range Interpretation Comments Basophils # (test code 0.1 See_Comment [Aut omated message] The = Basophils #) system which generated this result tra nsmitted reference range : <=0.2. The reference r theron was not used to int erpret this result as normal/abnormal . [facility] HospitalQyvxzudZTRGSMMWJB5317-33-35 11:58:00 Test Item Value Reference Range Interpretation Comments Monocytes # (test code 1.2 See_Comment [Aut omated message] The = Monocytes #) system which generated this result tra nsmitted reference range : <=0.8. The reference r theron was not used to int erpret this result as normal/abnormal . [facility] HospitalYpuxxuoVLSJUKZUXW3109-68-35 11:58:00 Test Item Value Reference Range Interpretation Comments Lymphocytes # (test code = Lymphocytes 1.2 1.0-5.5 #) [facility] HospitalVthmquyEROHBANPUM9045-11-73 11:58:00 Test Item Value Reference Range Interpretation Comments Neutrophils # (test code = Neutrophils 8.1 1.5-8.1 #) [facility] HospitalXmmaahsJSFSXYCUYM6402-02-24 11:58:00 Test Item Value Reference Range Interpretation Comments Monocytes (test code = Monocytes) 11.4 2.0-12.0 [facility] HospitalGhkkjusGXQPLOQDUO2611-75-56 11:58:00 Test Item Value Reference Range Interpretation Comments Lymphocytes (test code = Lymphocytes) 11.3 20.0-40.0 [facility] HospitalNdztkkiQGUBGRUBOR3622-05-46 11:58:00 Test Item Value Reference Range Interpretation Comments RDW (test code = RDW) 12.7 11.5-14.5 [facility] HospitalSuwczbwFKGYCAIJVG7775-11-40 11:58:00 Test Item Value Reference Range Interpretation Comments Platelet (test code = Platelet) 163 133-450 [facility] HospitalPcorukmXRPURMFOOC5377-55-46 11:58:00 Test Item Value Reference Range Interpretation Comments MPV (test code = MPV) 8.8 7.4-10.4 [facility] HospitalIhngdhqFYCJLLIQDU1021-71-05 11:58:00 Test Item Value Reference Range Interpretation Comments MCHC (test code = MCHC) 34.7 32.0-36.0 [facility] HospitalKxjtaxlYQAIWTDEBI6648-52-83 11:58:00 Test Item Value Reference Range Interpretation Comments MCH (test code = MCH) 31.3 pg 27.0-31.0 [facility] HospitalAbxyktmJIMUUDLZDR7506-67-97 11:58:00 Test Item Value Reference Range Interpretation Comments RBC (test code = RBC) 3.78 4.20-5.40 [facility] HospitalClnuektKCRGVBKJOS3213-60-94 11:58:00 Test Item Value Reference Range Interpretation Comments Hgb (test code = Hgb) 11.8 12.0-16.0 [facility] McallenMsfhdlhQRPVOKLZKN8944-38-21 11:58:00 Test Item Value Reference Range Interpretation Comments MCV (test code = MCV) 90.2 80.0-98.0 [facility]OgkjydxGXVZKWUATT1110-51-63 11:58:00 Test Item Value Reference Range Interpretation Comments Hct (test code = Hct) 34.0 36.0-48.0 [facility] McallenDgxdnzrQHBGRHYADL8451-84-28 11:58:00 Test Item Value Reference Range Interpretation Comments WBC (test code = WBC) 10.6 3.7-10.4 [facility] [employer] [id number] 21:43:00 Test Item Value Reference Range Interpretation Comments Antibody Scrn (test Negative (07/12/18 3:43 code = Antibody Scrn) PM) [facility] [employer] [id number] 21:43:00 Test Item Value Reference Range Interpretation Comments ABO/Rh (test code = ABO/Rh) A POS [facility] [employer] [id number] 21:43:00 Test Item Value Reference Range Interpretation Comments eGFR (test code = eGFR) 91 [facility] [employer] [id number] 21:43:00 Test Item Value Reference Range Interpretation Comments Sodium Lvl (test code = Sodium Lvl) 140 135-145 [facility] [employer] [id number] 21:43:00 Test Item Value Reference Range Interpretation Comments Creatinine Lvl (test code = Creatinine 0.79 0.50-1.40 Lvl) [facility] [id number] 21:43:00 Test Item Value Reference Range Interpretation Comments BUN (test code = BUN) 11 7-22 [facility] [id number] 21:43:00 Test Item Value Reference Range Interpretation Comments Calcium Lvl (test code = Calcium Lvl) 8.1 8.5-10.5 [facility] [id number] 21:43:00 Test Item Value Reference Range Interpretation Comments Chloride Lvl (test code = Chloride Lvl) 107 95-109 [facility] [id number] 21:43:00 Test Item Value Reference Range Interpretation Comments CO2 (test code = CO2) 29 24-32 [facility] [id number] 21:43:00 Test Item Value Reference Range Interpretation Comments Potassium Lvl (test code = Potassium 3.8 3.5-5.1 Lvl) [facility]2019-02-25 21:43:00 Test Item Value Reference Range Interpretation Comments Glucose Lvl (test code = Glucose Lvl) 82 70-99 [facility]2019-02-25 21:43:00 Test Item Value Reference Range Interpretation Comments AGAP (test code = AGAP) 7.8 10.0-20.0 [id number] 21:43:00 Test Item Value Reference Range Interpretation Comments Basophils (test code = 0.6 See_Comment [Aut omated message] The Basophils) system which ge nerated this result tra nsmitted reference range : <=1.0. The reference r theron was not used to int erpret this result as normal/abnormal . [id number] 21:43:00 Test Item Value Reference Range Interpretation Comments Eosinophils (test code = 1.1 See_Comment [A utomated message] The Eosinophils) system which ge nerated this result tra nsmitted reference range : <=4.0. The reference r theron was not used to int erpret this result as normal/abnormal . [id number] 21:43:00 Test Item Value Reference Range Interpretation Comments Monocytes (test code = Monocytes) 11.2 2.0-12.0 [facility] HospitalDkrfyspTVWECSVREY2681-16-72 21:43:00 Test Item Value Reference Range Interpretation Comments Segs (test code = Segs) 66.2 45.0-75.0 [facility] Hospit[id number] 21:43:00 Test Item Value Reference Range Interpretation Comments Lymphocytes (test code = Lymphocytes) 20.9 20.0-40.0 [facility] Hos[id number] 21:43:00 Test Item Value Reference Range Interpretation Comments Eosinophils # (test code 0.1 See_Comment [A utomated message] The = Eosinophils #) system whic h generated this result tra nsmitted reference range : <=0.5. The reference r theron was not used to int erpret this result as normal/abnormal . [facility] Hospit[id number] 21:43:00 Test Item Value Reference Range Interpretation Comments Lymphocytes # (test code = Lymphocytes 1.0 1.0-5.5 #) [facility] HospitalQaqdtksXFRFAYAHUL6869-84-50 21:43:00 Test Item Value Reference Range Interpretation Comments Neutrophils # (test code = Neutrophils 3.1 1.5-8.1 #) [facility] HospitalXwupgofZNPIQGLQOC2051-52-19 21:43:00 Test Item Value Reference Range Interpretation Comments Monocytes # (test code 0.5 See_Comment [Aut omated message] The = Monocytes #) system which generated this result tra nsmitted reference range : <=0.8. The reference r theron was not used to int erpret this result as normal/abnormal . [facility] HospitalMnrpijjYMBWLWRUXS8851-10-86 21:43:00 Test Item Value Reference Range Interpretation Comments INR (test code = INR) 1.04 1 0.85-1.17 [facility] HospitalVexpkjtRCPAVWSWAL7439-71-01 21:43:00 Test Item Value Reference Range Interpretation Comments PT (test code = PT) 13.4 s 12.0-14.7 [facility] HospitalHvtrldjMEIJNJFFCQ8458-50-60 21:43:00 Test Item Value Reference Range Interpretation Comments PTT (test code = PTT) 35.9 s 22.9-35.8 [facility] HospitalDxeohqrWZBPRZSEWS3057-96-81 21:43:00 Test Item Value Reference Range Interpretation Comments RBC (test code = RBC) 4.23 4.20-5.40 [facility] HospitalOsenephQFSRQUPCPH8951-60-40 21:43:00 Test Item Value Reference Range Interpretation Comments RDW (test code = RDW) 12.7 11.5-14.5 [facility] HospitalDpjxjwcGFNHISUBDI5384-97-80 21:43:00 Test Item Value Reference Range Interpretation Comments Hgb (test code = Hgb) 13.1 12.0-16.0 [facility] HospitalQtxwihfIXMUGEGMAO1552-99-85 21:43:00 Test Item Value Reference Range Interpretation Comments Hct (test code = Hct) 37.5 36.0-48.0 [facility] HospitalIwwcfwiYCOUVZDTCX2743-83-75 21:43:00 Test Item Value Reference Range Interpretation Comments WBC (test code = WBC) 4.7 3.7-10.4 [facility] HospitalQqfkgktJEMXSJLPPM2111-30-66 21:43:00 Test Item Value Reference Range Interpretation Comments Platelet (test code = Platelet) 179 133-450 [facility]FqeykqbUZLNMGYHAV5473-97-03 21:43:00 Test Item Value Reference Range Interpretation Comments MPV (test code = MPV) 8.7 7.4-10.4 [facility] HospitalUxfhqlvUPBAOGPWIN1433-32-55 21:43:00 Test Item Value Reference Range Interpretation Comments MCV (test code = MCV) 88.9 80.0-98.0 [facility][id number] 21:43:00 Test Item Value Reference Range Interpretation Comments MCH (test code = MCH) 31.1 pg 27.0-31.0 [facility]enUlstzssRSAWGRVJOA6280-01-18 21:43:00 Test Item Value Reference Range Interpretation Comments MCHC (test code = MCHC) 35.0 32.0-36.0 [facility] Hospit[id number] 21:43:00 Test Item Value Reference Range Interpretation Comments HIV Ag/Ab 4th Gen Negative *NA*(07/12/18 (test code = HIV 3:43 PM) Ag/Ab 4th Gen) [facility]enEzptkvfSGYDCFHURG4249-21-81 21:43:00 Test Item Value Reference Range Interpretation Comments Hep C Ab (test code = Negative *NA*(07/12/18 Hep C Ab) 3:43 PM) [facility] [id number] 21:43:00 Test Item Value Reference Range Interpretation Comments U Preg (test code = U Negative (07/12/18 3:43 Preg) PM) [facility] Chest 2 views [id number] 15:38:00EXAM: Chest 2 views DXHISTORY: Coughing - pre opCOMPARISON: NoneThe heart size is normal. The lungs are clear. There is no pleural effusionor pneumothorax. No acute skeletal abnormality.IMPRESSION: No acute abnormality.--Read by: Lynnette Price MDDictated Date/time: 07/12/18 16:35Electronically Signed by: Lynnette Price MD 07/12/1915:37FINAL REPORT[facility][O] Urine Dipstick (In Office) 2018-07-12 14:26:00 Test Item Value Reference Range Interpretation Comments Glucose (test code = Glucose) neg N LEUKOCYTES (test code = LEUKOCYTES) neg N NITRITE; Normal (test code = 13288-0) neg N UROBILINOGEN; Normal (test code = 1.0 N 07100-4) PROTEIN; Abnormal (test code = 30mg/dl A 53598-6) pH (test code = pH) 7.0 N URINE BLOOD; Abnormal (test code = 3+ A 14521-4) SPECIFIC GRAVITY; Normal (test code = 1.020 N 2965-2) KETONES; Abnormal (test code = trace A 05668-0) BILIRUBIN; Normal (test code = neg N 02529-0) [facility][O] Urine Dipstick (In Office)2018-05-13 16:50:00 Test Item Value Reference Range Interpretation Comments Glucose (test code = Glucose) neg N LEUKOCYTES (test code = LEUKOCYTES) neg N NITRITE; Normal (test code = 42229-2) neg N UROBILINOGEN; Normal (test code = 1.0 N 94291-7) PROTEIN; Normal (test code = 71457-3) neg N pH (test code = pH) 6.0 N URINE BLOOD; Normal (test code = neg N 43148-0) SPECIFIC GRAVITY; Normal (test code = 1.025 N 2965-2) KETONES; Normal (test code = 59672-1) neg N BILIRUBIN; Normal (test code = 59728-3) neg N [facility][O] Urine Dipstick (In Office)2018-05-04 11:46:00 Test Item Value Reference Range Interpretation Comments Glucose (test code = Glucose) NEG N LEUKOCYTES (test code = LEUKOCYTES) NEG N NITRITE; Normal (test code = 14099-0) NEG N UROBILINOGEN; Normal (test code = 0.2 N 71290-4) PROTEIN; Normal (test code = 79263-3) NEG N pH (test code = pH) 7.0 N URINE BLOOD; Abnormal (test code = 1+ A 80383-2) SPECIFIC GRAVITY; Normal (test code = 1.015 N 2965-2) KETONES; Normal (test code = 36065-7) NEG N BILIRUBIN; Normal (test code = 80949-1) NEG N [facility][O] Urine Dipstick (In Office)2018-04-29 15:21:00 Test Item Value Reference Range Interpretation Comments Glucose (test code = Glucose) NEG N LEUKOCYTES (test code = LEUKOCYTES) NEG N NITRITE; Normal (test code = 00751-3) NEG N UROBILINOGEN; Normal (test code = 1.0 N 75192-0) PROTEIN; Normal (test code = 08410-0) NEG N pH (test code = pH) 8.0 N URINE BLOOD; Abnormal (test code = 1+ A 61984-2) SPECIFIC GRAVITY; Normal (test code = 1.020 N 2965-2) KETONES; Normal (test code = 87840-9) NEG N BILIRUBIN; Normal (test code = 13716-9) NEG N [facility]] CULTURE, URINE, [id number] 13:40:01 Test Item Value Reference Range Interpretation Comments ORGANISM (test code = Escherichia coli 699-9) FINAL REPORT (test 50,000 - 100,000 CFU/mL code = FINAL REPORT) Escherichia coli <10,000 CFU/mL [facility][H] [id number] 13:40:01 Test Item Value Reference Range Interpretation Comments ORGANISM (test code = Escherichia coli 699-9) Amikacin (test code = - S Amikacin) Ampicillin (test code - R = Ampicillin) Ampicillin/Sulbactam - R (test code = Ampicillin/Sulbactam) Cefazolin (test code - S = Cefazolin) Ceftriaxone (test - S code = Ceftriaxone) Ciprofloxacin (test - S code = Ciprofloxacin) Cefepime (test code = - S Cefepime) ESBL Confirmation - (test code = ESBL Confirmation) Gentamicin (test code - S = Gentamicin) Levofloxacin (test - S code = Levofloxacin) Nitrofurantoin (test - S code = Nitrofurantoin) Piperacillin/Tazobact - S am (test code = Piperacillin/Tazobact am) Trimethoprim/Sulfamet - S hoxazole (test code = Trimethoprim/Sulfamet hoxazole) Tobramycin (test code - S = Tobramycin) Cefuroxime (test code - S = Cefuroxime) Meropenem (test code - S = Meropenem) Tetracycline (test SEE NOTES S S= Suscep tible, code = Tetracycline) R= Resi stant, I= Intermediate, N/A= Not Applicable [facility]"
--- NOTE | 2022-04-19 17:29 | RAD REPORT ---
EXAM DESCRIPTION: RAD -Hand Left 3 View - 04/19/2022 5:15 pm CLINICAL HISTORY: Left hand pain status post injury FINDINGS: No fracture or dislocation is seen.
--- NOTE | 2022-04-19 17:41 | EDPHYS ---
Physician Documentation [facility] Name: Kate Moreno Age: 46 yrs Sex: Female : 1975 Arrival Date: 04/19/2022 Time: 16:41 Bed DIS4 Private MD: ED Physician Kaiden Porter HPI: 04/19 16:50 This 46 yrs old Female presents to ER via Ambulatory with complaints of Finger Injury. jmm 16:50 The patient or guardian reports injury, pain. Onset: The symptoms/episode jmm began/occurred acutely, today. This is a 46 year old female with a history of htn that presents to the ED with complaints of left 5th finger pain which developed after being slammed on a door. Denies other injury. . 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 - Social history:: Smoking status: Patient denies any tobacco usage or history of. ROS: 16:50 Constitutional: Negative for fever, chills, and weight loss, Cardiovascular: Negative jmm for chest pain, palpitations, and edema, Respiratory: Negative for shortness of breath, cough, wheezing, and pleuritic chest pain. 16:50 MS/extremity: Positive for pain. 16:50 All other systems are negative. Exam: 16:50 Constitutional: This is a well developed, well nourished patient who is awake, alert, jmm and in no acute distress. Head/Face: atraumatic. Eyes: EOMI, no conjunctival erythema appreciated ENT: Moist Mucus Membranes Neck: Trachea midline, Supple Chest/axilla: Normal chest wall appearance and motion. Cardiovascular: Regular rate and rhythm. No edema appreciated Respiratory: Normal respirations, no respiratory distress appreciated Abdomen/GI: Non distended Back: Normal ROM 16:50 Skin: abrasion noted to the left 5th finger. 16:50 Neuro: Orientation: is normal, Mentation: is normal, Memory: is normal. 16:50 Psych: Behavior/mood is pleasant, cooperative. Vital Signs: 16:46 BP 156 / 86; Pulse 95; Resp 20; Temp 97.6; Pulse Ox 100% ; Weight 61.23 kg; Height 5 kb3 ft. 1 in. (154.94 cm); Pain 8/10; 16:46 Body Mass Index 25.51 (61.23 kg, 154.94 cm) kb3 MDM: 16:52 Patient medically screened. [facility] 17:37 Data reviewed: vital signs, nurses notes. Counseling: I had a detailed discussion with megna the patient and/or guardian regarding: the historical points, exam findings, and any diagnostic results supporting the discharge/admit diagnosis, radiology results, the need for outpatient follow up, to return to the emergency department if symptoms worsen or persist or if there are any questions or concerns that arise at home. 04/19 16:50 Order name: Hand Left 3 View XRAY; Complete Time: 17:29 [facility] Administered Medications: No medications were administered Disposition: 04/20 08:10 Co-signature as Attending Physician, Kaiden Porter MD I agree with the assessment and kishan plan of care. Disposition Summary: 04/19/22 17:40 Discharge Ordered Location: Home [facility] Condition: Stable [facility] Diagnosis - Finger Contusion [facility] Followup: [facility] - With: Private Physician - When: 2 - 3 days - Reason: Recheck today's complaints, Continuance of care, Re-evaluation by your physician Forms: - Medication Reconciliation Form [facility] - Thank You Letter [facility] - Antibiotic Education [facility] - Prescription Opioid Use [facility] Signatures: Dispatcher [employer] Kaiden Hobson MD MD cha Mickail, Joel, PA PA jmm Bradberry, Kelly, RN RN kb3
--- NOTE | 2022-04-19 17:41 | ER ---
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 PT c/o left pinky pain and swelling. Coronavirus screen: Vaccine status: Patient reports receiving the 2nd dose of the covid vaccine. Client denies travel out of the [place] in the last 14 days. Ebola Screen: Patient negative for fever greater than or equal to 101.5 degrees Fahrenheit, and additional compatible Ebola Virus Disease symptoms Patient denies exposure to infectious person. Patient denies travel to an Ebola-affected area in the 21 days before illness onset. Initial Sepsis Screen: Does the patient meet any 2 criteria? No. Patient's initial sepsis screen is negative. Does the patient have a suspected source of infection? No. Patient's initial sepsis screen is negative. Risk Assessment: Do you want to hurt yourself or someone else? Patient reports no desire to harm self or others. Onset of symptoms was April 19, 2022 at 16:00. 16:46 Method Of Arrival: Ambulatory kb3 16:46 Acuity: BHUMI 4 kb3 Triage Assessment: 16:49 General: Appears in no apparent distress. Behavior is calm, cooperative. Pain: kb3 Complains of pain in dorsal aspect of distal phalanx of left little finger, dorsal aspect of middle phalanx of left little finger and dorsal aspect of proximal phalanx of left little finger Pain does not radiate. Pain currently is 8 out of 10 on a pain scale. Quality of pain is described as throbbing. 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 - Social history:: Smoking status: Patient denies any tobacco usage or history of. Vital Signs: 16:46 BP 156 / 86; Pulse 95; Resp 20; Temp 97.6; Pulse Ox 100% ; Weight 61.23 kg; Height 5 kb3 ft. 1 in. (154.94 cm); Pain 8/10; 16:46 Body Mass Index 25.51 (61.23 kg, 154.94 cm) kb3 ED Course: 16:41 Patient arrived in ED. rg4 16:48 Triage completed. kb3 16:49 Justin Smith PA is PHCP. megan 16:49 Kaiden Porter MD is Attending Physician. jmm 16:49 Arm band placed on right wrist. kb3 17:17 Hand Left 3 View XRAY In Process Unspecified. EDMS 18:00 Cecy Feldman, RN is Primary Nurse. iw Administered Medications: No medications were administered Outcome: 17:40 Discharge ordered by . jmm 18:00 Patient left the ED. iw Signatures: Dispatcher [employer] EDMS Justin Smith PA PA jmm Williams, Irene, RN Merna Arana rg4 Jazlyn Clifton RN RN kb3
[2022-04-19 18:16] VITALS: BP 156/86; TEMP 97.6; O2SAT 100
== END 2022-04-19 18:00 | disposition home or self-care (01) ==
LOC: ER 16:38
DX: S60.052A Contusion of left little finger without damage to nail, initial encounter (principal); Z88.5 Allergy status to narcotic agent
CPT/HCPCS: 99282